=== PATIENT | male | born 1955 | race Caucasian/White ===

== ENCOUNTER 2016-11-06 01:40 | Inpatient (IN) | payer BC ==
[2016-11-06] VITALS (22 sets, daily range): BP systolic 132–167; BP diastolic 65–82
[~2016-11-06] VITALS: Ht 195.6 cm; Wt 89.0 kg
[~2016-11-06 01:40] MED LIST: ADALAT CC 60 MG60 MG PO; ALDOMET250 MG PO; APRESOLINE25 MG PO; ASPIRIN81 M1 PO; AVAPRO150 MG PO; AXID150 MG PO; BENICAR20 MG PO; CARDURA4 MG PO; CLARITIN10 M3 PO; COUMADIN2 MG PO; COUMADIN6 MG PO; COUMADIN7.5 MG PO; DILTIAZEM 24HR240 MG PO; Epogen,Procrit SQ; Halfprin PO; IRBESARTAN150 MG PO; IRON325 M1 PO; IRON325 MG PO; LABETALOL HCL200 MG PO; LONITEN2.5 MG PO; METHYLDOPA250 MG PO; MINOXIDIL2.5 MG PO; NASACORT10.8 ML BOTH NARES; NORMODYNE,TRAN200 MG PO; PROCRIT10000 UNI1 IV; PROCRIT20000 UNI2 SC; PROTONIX40 MG PO; Procardia XL,Adalat PO; TRICOR145 MG PO; VITAMIN D-32000 UNI1 PO; VITAMIN D2000 INTUN PO; VITAMIN D2000 UNIT PO; VITAMIN D32000 UNI1 PO; VITAMIN D32000 UNIT PO; WARFARIN SODIUM6 MG PO; ZETIA10 MG PO
[2016-11-06 01:52] LABS: CREATININE 3.8 mg/dL (0.6-1.3); POTASSIUM 4.1 mEq/L (3.7-5.4)
[2016-11-06 02:02] LABS: HEMATOCRIT 26.5 % (38.0-50.0); MCH 31.8 PG (29.0-34.0); MCHC 35.1 G/DL (30.0-36.0); MCV 90.8 FL (86-99); MEAN PLAT.VOLUME 10.7 uM^3 (9.0-12.4); PLATELET COUNT 167 K/uL (156-360); RBC DIS.WIDTH-CV 12.1 % (11.8-14.6); RBC DIS.WIDTH-SD 38.8 % (39-53); RED BLOOD COUNT 2.92 M/uL (4.00-5.50); WHITE BLOOD COUNT 16.2 K/uL (4.1-10.2)
[2016-11-06 02:08] LABS: CARBON DIOXIDE (BICARBONATE) 18.4 MEQ/L (20-31)
[2016-11-06 02:13] LABS: INTER. NORMALIZED RATIO 3.4; PROTHROMBIN TIME 36.1 (9.2-11.2)
[2016-11-06 02:14] LABS: CHLORIDE 94 mEq/L (99-109); POTASSIUM 4.2 mEq/L (3.7-5.4); SODIUM 124 mEq/L (136-147)
[2016-11-06 02:16] LABS: GLUCOSE 132 mg/dL (70-99)
[2016-11-06 02:21] LABS: UREA NITROGEN (BUN) 67 mg/dL (9-23)
[2016-11-06 02:24] LABS: TROP-I INTERPRETATION NEGATIVE; TROPONIN-I 0.22 ng/mL (0.0-0.30)
[2016-11-06 02:34] LABS: GFR ESTIMATE (CALCULATED) 17 mL/min/
[2016-11-06 05:22] LABS: BASE EXCESS -7.1 mEq/L (-3 to +3); BICARBONATE 16.7 mEq/L (22-26); COMMENTS - BLOOD GASES A+C+; DEVICE MASK VENT; METHEMOGLOBIN 1.7 % (0-1.5); PCO2 27 mm Hg (35-45); PO2 57 mm Hg (80-100); SITE RR
[2016-11-06 05:23] LABS: FI02 100 %; PEEP 5 CM/H20; PRES. SUPPORT 12 CM/H2O; TOTAL RESP RATE 41 resp/min
[2016-11-06] MEDS ORDERED: AMIODARONE HCL200 MG PO (05:35)
[2016-11-06] MEDS ORDERED: VITAMIN D-32000 UNI2 PO (05:36)
[2016-11-06] MEDS ORDERED: ECONAZOLE NITRA15 GM TP (05:37)
[2016-11-06] MEDS ORDERED: LABETALOL HCL200 MG PO (05:42)
[2016-11-06] MEDS ORDERED: LABETALOL HCL300 MG PO (05:44)
[2016-11-06] MEDS ORDERED: PROCARDIA XL30 MG PO (05:46)
[2016-11-06] MEDS ORDERED: PROCARDIA XL60 MG PO (05:47)
[2016-11-06 07:13] LABS: METH RESISTANT S AUREUS PCR NEGATIVE (NEGATIVE)
[2016-11-06 07:18] LABS: PROBE CHECK PASS; SPECIMEN PROCESSING CONTROL PASS
[2016-11-06 07:19] LABS: ADD MIUA? YES; BILIRUBIN NEGATIVE; BLOOD NEGATIVE; COLOR YELLOW ((YELLOW)); GLUCOSE (STRIP) NEGATIVE; KETONES NEGATIVE; LEUKOCYTES NEGATIVE; NITRITE NEGATIVE; PROTEIN (STRIP) NEGATIVE; SPECIFIC GRAVITY 1.014 (1.000-1.030); UROBILINOGEN 0.2 MG/DL (0.2-1.0)
[2016-11-06 07:22] LABS: CASTS NONE SEEN /LPF; CRYSTALS NONE SEEN; EPITHELIAL CELLS RARE; MUCUS NONE SEEN; PATHOLOGICAL CAST NONE SEEN; SMALL ROUND CELL NONE SEEN; UCUL ADDED? NO; WHITE BLOOD CELLS 0-5 /HPF (0-5); YEAST-LIKE CELL NONE SEEN
[2016-11-06 07:44] LABS: BACTERIA RARE; RED BLOOD CELLS 15-20 /HPF (0-5)
[2016-11-06] MEDS ORDERED: LASIX40 MG PO (15:12)
[2016-11-06] MEDS ORDERED: KETOCONAZOLE60 GM TP (15:13)
[2016-11-06 16:41] LABS: ANION GAP 14 MEQ/L (2-14); CHLORIDE 94 MEQ/L (99-109); GFR ESTIMATE (CALCULATED) 21 mL/min/; GLUCOSE 119 mg/dL (70-99); MAGNESIUM 1.1 mg/dl (1.3-2.7); POTASSIUM 3.8 MEQ/L (3.7-5.4); SAMPLE HEMOLYSIS CHECK 0; SAMPLE ICTERIC CHECK 0; SAMPLE LIPEMIA CHECK 0; SODIUM 127 MEQ/L (136-147); UREA NITROGEN (BUN) 67 mg/dL (9-23)
[2016-11-07] VITALS (29 sets, daily range): BP systolic 85–149; BP diastolic 49–91
[2016-11-07 00:56] LABS: CHLORIDE 96 mEq/L (99-109); POTASSIUM 4.3 mEq/L (3.7-5.4); SODIUM 129 mEq/L (136-147)
[2016-11-07 00:58] LABS: GLUCOSE 129 mg/dL (70-99)
[2016-11-07 00:59] LABS: ANION GAP 13 MEQ/L (2-14)
[2016-11-07 01:02] LABS: GFR ESTIMATE (CALCULATED) 20 mL/min/
[2016-11-07 01:03] LABS: UREA NITROGEN (BUN) 69 mg/dL (9-23)
[2016-11-07 06:07] LABS: HEMATOCRIT 24.6 % (38.0-50.0); MCH 31.1 PG (29.0-34.0); MCHC 34.6 G/DL (30.0-36.0); MCV 90.1 FL (86-99); MEAN PLAT.VOLUME 10.9 uM^3 (9.0-12.4); PLATELET COUNT 178 K/uL (156-360); RBC DIS.WIDTH-CV 12.6 % (11.8-14.6); RBC DIS.WIDTH-SD 41.3 % (39-53); RED BLOOD COUNT 2.73 M/uL (4.00-5.50); WHITE BLOOD COUNT 12.5 K/uL (4.1-10.2)
[2016-11-07 06:33] LABS: ANION GAP 14 MEQ/L (2-14); CHLORIDE 95 MEQ/L (99-109); GFR ESTIMATE (CALCULATED) 21 mL/min/; GLUCOSE 123 mg/dL (70-99); SAMPLE HEMOLYSIS CHECK 0; SAMPLE ICTERIC CHECK 0; SAMPLE LIPEMIA CHECK 0; SODIUM 131 MEQ/L (136-147); UREA NITROGEN (BUN) 71 mg/dL (9-23)
[2016-11-07 06:40] LABS: MAGNESIUM 1.9 mg/dl (1.3-2.7)
[2016-11-07 16:32] LABS: INTER. NORMALIZED RATIO 4.8; PROTHROMBIN TIME 51.4 (9.2-11.2)
[2016-11-07 16:46] LABS: ANION GAP 13 MEQ/L (2-14); CHLORIDE 96 MEQ/L (99-109); GFR ESTIMATE (CALCULATED) 19 mL/min/; GLUCOSE 133 mg/dL (70-99); MAGNESIUM 1.8 mg/dl (1.3-2.7); POTASSIUM 3.9 MEQ/L (3.7-5.4); SAMPLE HEMOLYSIS CHECK 0; SAMPLE ICTERIC CHECK 0; SAMPLE LIPEMIA CHECK 0; SODIUM 131 MEQ/L (136-147); UREA NITROGEN (BUN) 80 mg/dL (9-23)
[2016-11-07 19:17] LABS: INFLUENZA A VIRAL ANTIGEN NEGATIVE; INFLUENZA B VIRAL ANTIGEN NEGATIVE
[2016-11-08] VITALS (27 sets, daily range): BP systolic 83–121; BP diastolic 45–66
[2016-11-08 06:05] LABS: HEMATOCRIT 20.8 % (38.0-50.0); MCH 30.9 PG (29.0-34.0); MCHC 34.6 G/DL (30.0-36.0); MCV 89.3 FL (86-99); MEAN PLAT.VOLUME 10.4 uM^3 (9.0-12.4); PLATELET COUNT 183 K/uL (156-360); RBC DIS.WIDTH-CV 12.5 % (11.8-14.6); RBC DIS.WIDTH-SD 40.8 % (39-53); RED BLOOD COUNT 2.33 M/uL (4.00-5.50); WHITE BLOOD COUNT 10.9 K/uL (4.1-10.2)
[2016-11-08 06:54] LABS: ANION GAP 17 MEQ/L (2-14); CHLORIDE 98 MEQ/L (99-109); GFR ESTIMATE (CALCULATED) 14 mL/min/; GLUCOSE 122 mg/dL (70-99); MAGNESIUM 2.2 mg/dl (1.3-2.7); POTASSIUM 4.1 MEQ/L (3.7-5.4); SAMPLE HEMOLYSIS CHECK 0; SAMPLE ICTERIC CHECK 0; SAMPLE LIPEMIA CHECK 0; SODIUM 134 MEQ/L (136-147); UREA NITROGEN (BUN) 100 mg/dL (9-23); VANCOMYCIN, TROUGH 18.2 MCG/ML (10-20)
[2016-11-08 08:54] LABS: INTERNAL CONTROL VALID? YES
[2016-11-08 15:09] LABS: C3 COMPLEMENT 108 MG/DL (58-170); C4 COMPLEMENT 14 MG/DL (10-40)
[2016-11-08 16:46] LABS: ANION GAP 19 MEQ/L (2-14); GFR ESTIMATE (CALCULATED) 13 mL/min/; GLUCOSE 131 mg/dL (70-99); SAMPLE HEMOLYSIS CHECK 0; SAMPLE ICTERIC CHECK 0; SAMPLE LIPEMIA CHECK 0
[2016-11-08 16:58] LABS: UREA NITROGEN (BUN) 112 mg/dL (9-23)
[2016-11-08 17:01] LABS: CHLORIDE 97 MEQ/L (99-109); POTASSIUM 3.9 MEQ/L (3.7-5.4); SODIUM 135 MEQ/L (136-147)
[2016-11-09] VITALS (18 sets, daily range): BP systolic 116–162; BP diastolic 63–90
[2016-11-09 07:17] LABS: EOSINOPHIL (%) 0.9 % (0-5); EOSINOPHIL COUNT 0.1 K/uL (0-0.3); HEMATOCRIT 21.9 % (38.0-50.0); IMMATURE GRANULOCYTE (%) 0.3 % (0.0-0.7); LYMPHOCYTE COUNT 0.9 K/uL (1.0-2.8); MCH 31.6 PG (29.0-34.0); MCHC 35.6 G/DL (30.0-36.0); MCV 88.7 FL (86-99); MEAN PLAT.VOLUME 10.2 uM^3 (9.0-12.4); MONOCYTE (%) 2.4 % (3-12); MONOCYTE COUNT 0.3 K/uL (0-0.8); NEUTROPHIL (%) 89.3 % (45-76); NEUTROPHIL COUNT 11.5 K/uL (1.8-6.4); PLATELET COUNT 225 K/uL (156-360); RBC DIS.WIDTH-CV 12.5 % (11.8-14.6); RED BLOOD COUNT 2.47 M/uL (4.00-5.50); WHITE BLOOD COUNT 12.9 K/uL (4.1-10.2)
[2016-11-09 08:31] LABS: ALKALINE PHOSPHATASE 44 IU/L (3-129); ANION GAP 17 MEQ/L (2-14); CHLORIDE 103 MEQ/L (99-109); GFR ESTIMATE (CALCULATED) 15 mL/min/; GLUCOSE 122 mg/dL (70-99); MAGNESIUM 2.2 mg/dl (1.3-2.7); POTASSIUM 3.6 MEQ/L (3.7-5.4); SAMPLE HEMOLYSIS CHECK 0; SAMPLE ICTERIC CHECK 0; SAMPLE LIPEMIA CHECK 0; SODIUM 137 MEQ/L (136-147); TOTAL BILIRUBIN 2.1 MG/DL (0.0-1.0); UREA NITROGEN (BUN) 115 mg/dL (9-23); URIC ACID 9.3 mg/dL (3.1-9.2)
[2016-11-10] VITALS (18 sets, daily range): BP systolic 102–169; BP diastolic 57–100
[2016-11-10 05:45] LABS: EOSINOPHIL (%) 0.3 % (0-5); HEMATOCRIT 21.1 % (38.0-50.0); IMMATURE GRANULOCYTE (%) 0.3 % (0.0-0.7); LYMPHOCYTE COUNT 0.8 K/uL (1.0-2.8); MCH 30.7 PG (29.0-34.0); MCHC 34.6 G/DL (30.0-36.0); MCV 88.7 FL (86-99); MONOCYTE (%) 3.3 % (3-12); MONOCYTE COUNT 0.4 K/uL (0-0.8); NEUTROPHIL (%) 88.9 % (45-76); NEUTROPHIL COUNT 10.5 K/uL (1.8-6.4); PLATELET COUNT 232 K/uL (156-360); RBC DIS.WIDTH-CV 12.8 % (11.8-14.6); RBC DIS.WIDTH-SD 41.3 % (39-53); RED BLOOD COUNT 2.38 M/uL (4.00-5.50); WHITE BLOOD COUNT 11.8 K/uL (4.1-10.2)
[2016-11-10 07:44] LABS: ANION GAP ND MEQ/L (2-14); GFR ESTIMATE (CALCULATED) 18 mL/min/; GLUCOSE 121 mg/dL (70-99); SAMPLE HEMOLYSIS CHECK 0; SAMPLE ICTERIC CHECK 0; SAMPLE LIPEMIA CHECK 0
[2016-11-10 07:52] LABS: POTASSIUM 3.3 MEQ/L (3.7-5.4); SODIUM 140 MEQ/L (136-147); UREA NITROGEN (BUN) 112 mg/dL (9-23)
[2016-11-10 07:54] LABS: CHLORIDE 105 MEQ/L (99-109)
[2016-11-10 19:59] LABS: BASE EXCESS -4.4 mEq/L (-3 to +3); CARBOXY HGB 1.8 % (0-5); METHEMOGLOBIN 1.9 % (0-1.5); pH 7.34 (7.35-7.45)
[2016-11-10 20:00] LABS: PCO2 39 mm Hg (35-45); PO2 37 mm Hg (80-100)
[2016-11-10 20:01] LABS: PEEP 6 CM/H20
[2016-11-10 20:02] LABS: DEVICE PB840; FI02 100 %; MODE SPON; PRES. SUPPORT 12 CM/H2O; SITE LR; TOTAL RESP RATE 40 resp/min
[2016-11-10 21:18] LABS: BASE EXCESS -3.9 mEq/L (-3 to +3); BICARBONATE 22.6 mEq/L (22-26); CARBOXY HGB 2.5 % (0-5); METHEMOGLOBIN 1.5 % (0-1.5); PCO2 48 mm Hg (35-45); PO2 50 mm Hg (80-100); pH 7.28 (7.35-7.45)
[2016-11-10 21:19] LABS: DEVICE PB840; FI02 100 %; MECHANICAL RATE 12 resp/min; MODE ACPC; PEEP 8 CM/H20; PRESSURE CONTROL VENTILATION 17 CM H20; SITE LB
[2016-11-10 21:37] LABS: HEMATOCRIT 23.9 % (38.0-50.0); MCH 31.6 PG (29.0-34.0); MCHC 35.1 G/DL (30.0-36.0); MCV 89.8 FL (86-99); MEAN PLAT.VOLUME 10.3 uM^3 (9.0-12.4); PLATELET COUNT 294 K/uL (156-360); RBC DIS.WIDTH-CV 12.7 % (11.8-14.6); RBC DIS.WIDTH-SD 41.6 % (39-53); RED BLOOD COUNT 2.66 M/uL (4.00-5.50)
[2016-11-10 21:47] LABS: ANION GAP 15 MEQ/L (2-14); CHLORIDE 105 MEQ/L (99-109); MAGNESIUM 2.1 mg/dl (1.3-2.7); POTASSIUM 3.6 MEQ/L (3.7-5.4); SAMPLE HEMOLYSIS CHECK 0; SAMPLE ICTERIC CHECK 1; SAMPLE LIPEMIA CHECK 0; SODIUM 141 MEQ/L (136-147)
[2016-11-10 21:48] LABS: PROTHROMBIN TIME 20.4 (9.2-11.2)
[2016-11-10 21:50] LABS: WHITE BLOOD COUNT 18.9 K/uL (4.1-10.2)
[2016-11-10 21:57] LABS: TROP-I INTERPRETATION NEGATIVE; TROPONIN-I 0.15 ng/mL (0.0-0.30)
[2016-11-10 22:07] LABS: GFR ESTIMATE (CALCULATED) 20 mL/min/; GLUCOSE 136 mg/dL (70-99)
[2016-11-10 22:08] LABS: UREA NITROGEN (BUN) 109 mg/dL (9-23)
[2016-11-11] VITALS (27 sets, daily range): BP systolic 0–152; BP diastolic 0–83
[2016-11-11 06:16] LABS: EOSINOPHIL (%) 0.7 % (0-5); EOSINOPHIL COUNT 0.1 K/uL (0-0.3); HEMATOCRIT 20.4 % (38.0-50.0); IMMATURE GRANULOCYTE (%) 0.6 % (0.0-0.7); IMMATURE GRANULOCYTE COUNT 0.1 K/uL; LYMPHOCYTE COUNT 0.8 K/uL (1.0-2.8); MCH 31.7 PG (29.0-34.0); MCHC 35.3 G/DL (30.0-36.0); MCV 89.9 FL (86-99); MEAN PLAT.VOLUME 10.4 uM^3 (9.0-12.4); MONOCYTE (%) 3.8 % (3-12); MONOCYTE COUNT 0.4 K/uL (0-0.8); NEUTROPHIL (%) 87.7 % (45-76); NEUTROPHIL COUNT 9.5 K/uL (1.8-6.4); PLATELET COUNT 210 K/uL (156-360); RBC DIS.WIDTH-CV 12.9 % (11.8-14.6); RBC DIS.WIDTH-SD 41.9 % (39-53); RED BLOOD COUNT 2.27 M/uL (4.00-5.50)
[2016-11-11 06:20] LABS: WHITE BLOOD COUNT 10.9 K/uL (4.1-10.2)
[2016-11-11 06:52] LABS: ANION GAP 17 MEQ/L (2-14); CHLORIDE 103 MEQ/L (99-109); GFR ESTIMATE (CALCULATED) 18 mL/min/; GLUCOSE 139 mg/dL (70-99); MAGNESIUM 2.1 mg/dl (1.3-2.7); POTASSIUM 3.6 MEQ/L (3.7-5.4); SAMPLE HEMOLYSIS CHECK 0; SAMPLE ICTERIC CHECK 1; SAMPLE LIPEMIA CHECK 0; SODIUM 142 MEQ/L (136-147)
[2016-11-11 06:57] LABS: UREA NITROGEN (BUN) 116 mg/dL (9-23)
[2016-11-11 14:00] LABS: Neutrophil Cytoplasmic Aby Negative (Negative)
[2016-11-11 14:57] LABS: BASE EXCESS -3.8 mEq/L (-3 to +3); BICARBONATE 26.4 mEq/L (22-26); CARBOXY HGB 1.8 % (0-5); COMMENTS - BLOOD GASES C+; DEVICE VENT; FI02 90 %; MECHANICAL RATE 18 resp/min; METHEMOGLOBIN 1.5 % (0-1.5); MODE A/C; PCO2 83 mm Hg (35-45); PO2 110 mm Hg (80-100); SITE RR
[2016-11-11 14:58] LABS: INSPIRATION TIME 1.53 seconds; PEEP 8 CM/H20; PRESSURE CONTROL VENTILATION 21 CM H20; TOTAL RESP RATE 31 resp/min; pH 7.11 (7.35-7.45)
[2016-11-11 15:22] LABS: POINT-OF-CARE METER ID UU14162636
[2016-11-11 17:36] LABS: POINT-OF-CARE METER ID UU13113731
[2016-11-11 17:49] LABS: BASE EXCESS -2.3 mEq/L (-3 to +3); BICARBONATE 23.7 mEq/L (22-26); CARBOXY HGB 2.5 % (0-5); METHEMOGLOBIN 1.4 % (0-1.5)
[2016-11-11 17:50] LABS: COMMENTS - BLOOD GASES A+C+; DEVICE VENT; FI02 85 %; MECHANICAL RATE 16 resp/min; MODE A/C; PCO2 46 mm Hg (35-45); PEEP 15 CM/H20; PO2 76 mm Hg (80-100); SITE RR; TIDAL VOLUME 590 ML; TOTAL RESP RATE 24 resp/min; pH 7.32 (7.35-7.45)
[2016-11-12] VITALS (23 sets, daily range): BP systolic 95–150; BP diastolic 52–71
[2016-11-12 00:32] LABS: POINT-OF-CARE METER ID UU14162636; POINT-OF-CARE USER ID LABHNS84
[2016-11-12 05:43] LABS: POINT-OF-CARE USER ID LABHNS84
[2016-11-12 06:11] LABS: EOSINOPHIL (%) 1.5 % (0-5); EOSINOPHIL COUNT 0.2 K/uL (0-0.3); HEMATOCRIT 21.8 % (38.0-50.0); IMMATURE GRANULOCYTE (%) 1.1 % (0.0-0.7); IMMATURE GRANULOCYTE COUNT 0.1 K/uL; LYMPHOCYTE COUNT 0.6 K/uL (1.0-2.8); MCHC 33.9 G/DL (30.0-36.0); MCV 91.2 FL (86-99); MEAN PLAT.VOLUME 10.5 uM^3 (9.0-12.4); MONOCYTE (%) 4.8 % (3-12); MONOCYTE COUNT 0.6 K/uL (0-0.8); NEUTROPHIL (%) 87.7 % (45-76); NEUTROPHIL COUNT 11.3 K/uL (1.8-6.4); PLATELET COUNT 271 K/uL (156-360); RBC DIS.WIDTH-CV 13.5 % (11.8-14.6); RBC DIS.WIDTH-SD 44.8 % (39-53); RED BLOOD COUNT 2.39 M/uL (4.00-5.50); WHITE BLOOD COUNT 12.8 K/uL (4.1-10.2)
[2016-11-12 06:25] LABS: INTER. NORMALIZED RATIO 2.2; PROTHROMBIN TIME 22.7 (9.2-11.2)
[2016-11-12 06:42] LABS: ANION GAP 15 MEQ/L (2-14); CHLORIDE 106 MEQ/L (99-109); GFR ESTIMATE (CALCULATED) 17 mL/min/; GLUCOSE 134 mg/dL (70-99); MAGNESIUM 2.4 mg/dl (1.3-2.7); POTASSIUM 3.7 MEQ/L (3.7-5.4); SAMPLE HEMOLYSIS CHECK 0; SAMPLE ICTERIC CHECK 1; SAMPLE LIPEMIA CHECK 0; SODIUM 144 MEQ/L (136-147)
[2016-11-12 06:43] LABS: UREA NITROGEN (BUN) 124 mg/dL (9-23)
[2016-11-12 16:59] LABS: BASE EXCESS -1.8 mEq/L (-3 to +3); CARBOXY HGB 2.2 % (0-5); COMMENTS - BLOOD GASES A+C+; DEVICE 840 PB VENT; METHEMOGLOBIN 1.5 % (0-1.5); PCO2 52 mm Hg (35-45); PO2 81 mm Hg (80-100); SITE RR; pH 7.29 (7.35-7.45)
[2016-11-12 17:00] LABS: FI02 70 %; MECHANICAL RATE 16 resp/min; MODE AC; PEEP 15 CM/H20; TIDAL VOLUME 590 ML; TOTAL RESP RATE 22 resp/min
[2016-11-12 17:09] LABS: POINT-OF-CARE METER ID UU13113748
[2016-11-12 19:42] LABS: ANION GAP 15 MEQ/L (2-14); CHLORIDE 106 MEQ/L (99-109); POTASSIUM 3.8 MEQ/L (3.7-5.4); SAMPLE HEMOLYSIS CHECK 0; SAMPLE ICTERIC CHECK 0; SAMPLE LIPEMIA CHECK 0; SODIUM 144 MEQ/L (136-147)
[2016-11-12 19:47] LABS: GFR ESTIMATE (CALCULATED) 18 mL/min/; GLUCOSE 141 mg/dL (70-99); UREA NITROGEN (BUN) 127 mg/dL (9-23)
[2016-11-12 20:08] LABS: EOSINOPHIL COUNT 0.4 K/uL (0-0.3); HEMATOCRIT 21.7 % (38.0-50.0); IMMATURE GRANULOCYTE (%) 0.9 % (0.0-0.7); IMMATURE GRANULOCYTE COUNT 0.1 K/uL; LYMPHOCYTE COUNT 0.6 K/uL (1.0-2.8); MCH 31.4 PG (29.0-34.0); MCHC 34.6 G/DL (30.0-36.0); MCV 90.8 FL (86-99); MEAN PLAT.VOLUME 10.3 uM^3 (9.0-12.4); MONOCYTE COUNT 0.5 K/uL (0-0.8); NEUTROPHIL (%) 83.8 % (45-76); NEUTROPHIL COUNT 7.6 K/uL (1.8-6.4); NRBC (%) 0.2 /100 WBC (0-0); PLATELET COUNT 249 K/uL (156-360); RBC DIS.WIDTH-CV 13.5 % (11.8-14.6); RBC DIS.WIDTH-SD 44.6 % (39-53); RED BLOOD COUNT 2.39 M/uL (4.00-5.50)
[2016-11-12 20:17] LABS: PROTHROMBIN TIME 31.7 (9.2-11.2); PTT 41.8 (25-32)
[2016-11-12 20:36] LABS: ANION GAP 14 MEQ/L (2-14); CHLORIDE 106 MEQ/L (99-109); GFR ESTIMATE (CALCULATED) 18 mL/min/; GLUCOSE 153 mg/dL (70-99); MAGNESIUM 2.3 mg/dl (1.3-2.7); POTASSIUM 3.6 MEQ/L (3.7-5.4); SAMPLE HEMOLYSIS CHECK 0; SAMPLE ICTERIC CHECK 0; SAMPLE LIPEMIA CHECK 0; SODIUM 144 MEQ/L (136-147); UREA NITROGEN (BUN) 123 mg/dL (9-23)
[2016-11-13] VITALS (24 sets, daily range): BP systolic 105–143; BP diastolic 61–73
[2016-11-13 00:54] LABS: POINT-OF-CARE METER ID UU14162636
[2016-11-13 06:03] LABS: EOSINOPHIL (%) 5.7 % (0-5); EOSINOPHIL COUNT 0.5 K/uL (0-0.3); IMMATURE GRANULOCYTE (%) 1.1 % (0.0-0.7); IMMATURE GRANULOCYTE COUNT 0.1 K/uL; LYMPHOCYTE COUNT 0.4 K/uL (1.0-2.8); MCH 31.1 PG (29.0-34.0); MCHC 34.1 G/DL (30.0-36.0); MCV 91.3 FL (86-99); MEAN PLAT.VOLUME 10.6 uM^3 (9.0-12.4); MONOCYTE (%) 4.1 % (3-12); MONOCYTE COUNT 0.4 K/uL (0-0.8); NEUTROPHIL (%) 84.3 % (45-76); NEUTROPHIL COUNT 7.3 K/uL (1.8-6.4); NRBC (%) 0.5 /100 WBC (0-0); PLATELET COUNT 268 K/uL (156-360); RBC DIS.WIDTH-CV 13.7 % (11.8-14.6); RED BLOOD COUNT 2.41 M/uL (4.00-5.50); WHITE BLOOD COUNT 8.7 K/uL (4.1-10.2)
[2016-11-13 06:31] LABS: INTER. NORMALIZED RATIO 3.5; PROTHROMBIN TIME 36.6 (9.2-11.2); PTT 43.7 (25-32)
[2016-11-13 12:23] LABS: POINT-OF-CARE METER ID UU14162636
[2016-11-13 17:58] LABS: POINT-OF-CARE METER ID UU14162636
[2016-11-13 23:50] LABS: POINT-OF-CARE METER ID UU14162636; POINT-OF-CARE USER ID LABHNS84
[2016-11-14] VITALS (24 sets, daily range): BP systolic 110–164; BP diastolic 58–85
[2016-11-14 06:21] LABS: POINT-OF-CARE USER ID LABHNS84
[2016-11-14 06:25] LABS: INTER. NORMALIZED RATIO 3.3; PROTHROMBIN TIME 35.3 (9.2-11.2); PTT 46.4 (25-32)
[2016-11-14 07:15] LABS: EOSINOPHIL (%) 5.9 % (0-5); EOSINOPHIL COUNT 0.7 K/uL (0-0.3); HEMATOCRIT 28.5 % (38.0-50.0); IMMATURE GRANULOCYTE (%) 1.3 % (0.0-0.7); IMMATURE GRANULOCYTE COUNT 0.2 K/uL; LYMPHOCYTE COUNT 0.4 K/uL (1.0-2.8); MCH 30.4 PG (29.0-34.0); MCV 92.2 FL (86-99); MEAN PLAT.VOLUME 10.6 uM^3 (9.0-12.4); MONOCYTE (%) 2.6 % (3-12); MONOCYTE COUNT 0.3 K/uL (0-0.8); NEUTROPHIL (%) 86.2 % (45-76); NEUTROPHIL COUNT 9.7 K/uL (1.8-6.4); NRBC (%) 0.5 /100 WBC (0-0); PLATELET COUNT 237 K/uL (156-360); RBC DIS.WIDTH-CV 14.9 % (11.8-14.6); RBC DIS.WIDTH-SD 50.2 % (39-53); RED BLOOD COUNT 3.09 M/uL (4.00-5.50); WHITE BLOOD COUNT 11.3 K/uL (4.1-10.2)
[2016-11-14 07:21] LABS: ANION GAP 14 MEQ/L (2-14); CHLORIDE 105 MEQ/L (99-109); GFR ESTIMATE (CALCULATED) 20 mL/min/; GLUCOSE 146 mg/dL (70-99); MAGNESIUM 2.3 mg/dl (1.3-2.7); SAMPLE HEMOLYSIS CHECK 0; SAMPLE ICTERIC CHECK 0; SAMPLE LIPEMIA CHECK 0; SODIUM 143 MEQ/L (136-147); UREA NITROGEN (BUN) 91 mg/dL (9-23)
[2016-11-14 10:29] LABS: BASE EXCESS -0.2 mEq/L (-3 to +3); BICARBONATE 24.8 mEq/L (22-26); CARBOXY HGB 1.8 % (0-5); METHEMOGLOBIN 1.9 % (0-1.5); PO2 66 mm Hg (80-100)
[2016-11-14 10:30] LABS: COMMENTS - BLOOD GASES A+C+; DEVICE 840 VENT; FI02 80 %; MECHANICAL RATE 18 resp/min; MODE PC; O2 FLOW 0 L/MIN; PCO2 41 mm Hg (35-45); SITE LR; TOTAL RESP RATE 22 resp/min; pH 7.39 (7.35-7.45)
[2016-11-14 10:31] LABS: INSPIRATION TIME 0.9 seconds; PEEP 8 CM/H20; PRESSURE CONTROL VENTILATION 18 CM H20; TIDAL VOLUME 930 ML
[2016-11-14 11:58] LABS: HBSG INDEX 0.16
[2016-11-14 11:58] LABS: ANTI-HEPATITIS B CORE (TOTAL) Nonreactive; HBCT INDEX 0.26
[2016-11-14 11:59] LABS: AHBS INDEX 1.26; HEPATITIS B SURFACE ANTIBODY Nonreactive; HPCA INDEX 0.18
[2016-11-15] VITALS (23 sets, daily range): BP systolic 94–164; BP diastolic 53–87
[2016-11-15 06:01] LABS: POINT-OF-CARE METER ID UU13113748
[2016-11-15 06:01] LABS: BASOPHIL COUNT 0.1 K/uL (0-0.1); EOSINOPHIL (%) 0.1 % (0-5); HEMATOCRIT 31.4 % (38.0-50.0); IMMATURE GRANULOCYTE (%) 1.7 % (0.0-0.7); IMMATURE GRANULOCYTE COUNT 0.2 K/uL; LYMPHOCYTE COUNT 0.5 K/uL (1.0-2.8); MCH 30.1 PG (29.0-34.0); MCHC 33.1 G/DL (30.0-36.0); MEAN PLAT.VOLUME 10.9 uM^3 (9.0-12.4); MONOCYTE (%) 2.2 % (3-12); MONOCYTE COUNT 0.3 K/uL (0-0.8); NEUTROPHIL (%) 91.8 % (45-76); NEUTROPHIL COUNT 11.7 K/uL (1.8-6.4); NRBC (%) 0.3 /100 WBC (0-0); PLATELET COUNT 237 K/uL (156-360); RBC DIS.WIDTH-CV 14.7 % (11.8-14.6); RBC DIS.WIDTH-SD 48.5 % (39-53); RED BLOOD COUNT 3.45 M/uL (4.00-5.50); WHITE BLOOD COUNT 12.8 K/uL (4.1-10.2)
[2016-11-15 06:11] LABS: INTER. NORMALIZED RATIO 3.2
[2016-11-15 06:30] LABS: ANION GAP 14 MEQ/L (2-14); CHLORIDE 101 MEQ/L (99-109); GFR ESTIMATE (CALCULATED) 25 mL/min/; MAGNESIUM 2.3 mg/dl (1.3-2.7); SAMPLE HEMOLYSIS CHECK 0; SAMPLE ICTERIC CHECK 0; SAMPLE LIPEMIA CHECK 0; SODIUM 140 MEQ/L (136-147); UREA NITROGEN (BUN) 70 mg/dL (9-23)
[2016-11-15 06:31] LABS: GLUCOSE 228 mg/dL (70-99)
[2016-11-15 10:38] LABS: POC NON-PRINT COM 1 ND
[2016-11-15 11:56] LABS: POINT-OF-CARE METER ID UU13113748
[2016-11-15 17:44] LABS: POINT-OF-CARE METER ID UU13113748
[2016-11-16] VITALS (33 sets, daily range): BP systolic 93–212; BP diastolic 62–131
[2016-11-16] LABS: POINT-OF-CARE METER ID UU13113748; POINT-OF-CARE USER ID LABHNS84
[2016-11-16 05:37] LABS: POINT-OF-CARE METER ID UU13113748; POINT-OF-CARE USER ID LABHNS84
[2016-11-16 06:06] LABS: ANION GAP 14 MEQ/L (2-14); CHLORIDE 101 MEQ/L (99-109); GFR ESTIMATE (CALCULATED) 31 mL/min/; GLUCOSE 178 mg/dL (70-99); MAGNESIUM 2.1 mg/dl (1.3-2.7); POTASSIUM 3.7 MEQ/L (3.7-5.4); SAMPLE HEMOLYSIS CHECK 0; SAMPLE ICTERIC CHECK 0; SAMPLE LIPEMIA CHECK 0; SODIUM 137 MEQ/L (136-147); TOTAL BILIRUBIN 1.7 MG/DL (0.0-1.0); UREA NITROGEN (BUN) 78 mg/dL (9-23)
[2016-11-16 06:09] LABS: ALKALINE PHOSPHATASE 84 IU/L (3-129)
[2016-11-16 06:28] LABS: BASOPHIL COUNT 0.1 K/uL (0-0.1); EOSINOPHIL (%) 0.2 % (0-5); HEMATOCRIT 29.4 % (38.0-50.0); IMMATURE GRANULOCYTE (%) 2.7 % (0.0-0.7); IMMATURE GRANULOCYTE COUNT 0.6 K/uL; LYMPHOCYTE COUNT 1.5 K/uL (1.0-2.8); MCH 30.3 PG (29.0-34.0); MCHC 33.3 G/DL (30.0-36.0); MEAN PLAT.VOLUME 11.7 uM^3 (9.0-12.4); MONOCYTE (%) 2.5 % (3-12); MONOCYTE COUNT 0.6 K/uL (0-0.8); NEUTROPHIL (%) 87.5 % (45-76); NEUTROPHIL COUNT 19.7 K/uL (1.8-6.4); PLATELET COUNT 258 K/uL (156-360); RBC DIS.WIDTH-CV 14.2 % (11.8-14.6); RBC DIS.WIDTH-SD 47.4 % (39-53); RED BLOOD COUNT 3.23 M/uL (4.00-5.50)
[2016-11-16 06:29] LABS: WHITE BLOOD COUNT 22.5 K/uL (4.1-10.2)
[2016-11-16 08:03] LABS: HEMATOLOGY COMMENT 1 SMEAR COMPATIBLE; USER ID CCL
[2016-11-16 09:46] LABS: C DIFF TOXIN NEGATIVE (NEGATIVE)
[2016-11-16 09:52] LABS: PROBE CHECK PASS; SPECIMEN PROCESSING CONTROL PASS
[2016-11-16 11:37] LABS: POINT-OF-CARE METER ID UU13113748
[2016-11-16 11:57] LABS: BASE EXCESS -0.5 mEq/L (-3 to +3); BICARBONATE 22.6 mEq/L (22-26); METHEMOGLOBIN 1.8 % (0-1.5); PO2 57 mm Hg (80-100); pH 7.47 (7.35-7.45)
[2016-11-16 11:58] LABS: COMMENTS - BLOOD GASES A+C+; DEVICE 840; FI02 40 %; MODE SPONT; PCO2 31 mm Hg (35-45); PEEP 5 CM/H20; PRES. SUPPORT 5 CM/H2O; SITE LR; TOTAL RESP RATE 19 resp/min
[2016-11-16 17:44] LABS: POINT-OF-CARE METER ID UU13113748
[2016-11-17] VITALS (31 sets, daily range): BP systolic 81–173; BP diastolic 68–112
[2016-11-17 00:02] LABS: UR CREATININE CONCENTRATION 116.8 MG/DL
[2016-11-17 05:35] LABS: HEMATOCRIT 31.8 % (38.0-50.0); MCH 29.6 PG (29.0-34.0); MCHC 32.1 G/DL (30.0-36.0); MCV 92.2 FL (86-99); MEAN PLAT.VOLUME 11.4 uM^3 (9.0-12.4); NRBC (%) 0.8 /100 WBC (0-0); PLATELET COUNT 206 K/uL (156-360); RBC DIS.WIDTH-CV 14.8 % (11.8-14.6); RBC DIS.WIDTH-SD 50.1 % (39-53); RED BLOOD COUNT 3.45 M/uL (4.00-5.50); WHITE BLOOD COUNT 21.7 K/uL (4.1-10.2)
[2016-11-17 05:56] LABS: ANION GAP 15 MEQ/L (2-14); CHLORIDE 102 MEQ/L (99-109); GFR ESTIMATE (CALCULATED) 28 mL/min/; GLUCOSE 152 mg/dL (70-99); POTASSIUM 3.4 MEQ/L (3.7-5.4); SAMPLE HEMOLYSIS CHECK 0; SAMPLE ICTERIC CHECK 0; SAMPLE LIPEMIA CHECK 0; SODIUM 140 MEQ/L (136-147); UREA NITROGEN (BUN) 87 mg/dL (9-23)
[2016-11-17 06:13] LABS: PROTHROMBIN TIME 14.4 (9.2-11.2)
[2016-11-17 06:14] LABS: INTER. NORMALIZED RATIO 1.4
[2016-11-17 06:26] LABS: POINT-OF-CARE METER ID UU13113731
[2016-11-17 06:44] LABS: BASOPHIL COUNT 0.1 K/uL (0-0.1); EOSINOPHIL (%) 2.2 % (0-5); EOSINOPHIL COUNT 0.5 K/uL (0-0.3); IMMATURE GRANULOCYTE (%) 4.7 % (0.0-0.7); LYMPHOCYTE COUNT 1.8 K/uL (1.0-2.8); MONOCYTE COUNT 1.5 K/uL (0-0.8); NEUTROPHIL (%) 77.1 % (45-76); NEUTROPHIL COUNT 16.7 K/uL (1.8-6.4)
[2016-11-17 08:09] LABS: ABS NEUTROPHIL COUNT 17.69; ANISOCYTOSIS 1+; EOSINOPHIL ABS CT 0.76; EOSINOPHILS 3.5 % (0-5.0); MICROCYTOSIS OCC; NUCLEATED RBC'S 0.5; PLAT.SUFFICIENCY ADEQUATE; SEG.NEUTROPHILS 75.5 % (46.0-76.0); USER ID STC
[2016-11-17 17:35] LABS: POINT-OF-CARE METER ID UU13113748
[2016-11-18] VITALS (26 sets, daily range): BP systolic 102–204; BP diastolic 66–115
[2016-11-18 01:05] LABS: POINT-OF-CARE METER ID UU13113731; POINT-OF-CARE USER ID LABHNS84
[2016-11-18 05:43] LABS: POINT-OF-CARE METER ID UU14174217
[2016-11-18 05:57] LABS: HEMATOCRIT 32.5 % (38.0-50.0); MCH 29.9 PG (29.0-34.0); MCV 93.4 FL (86-99); NRBC (%) 0.5 /100 WBC (0-0); RBC DIS.WIDTH-CV 14.9 % (11.8-14.6); RBC DIS.WIDTH-SD 50.3 % (39-53); RED BLOOD COUNT 3.48 M/uL (4.00-5.50); WHITE BLOOD COUNT 22.8 K/uL (4.1-10.2)
[2016-11-18 06:08] LABS: INTER. NORMALIZED RATIO 1.3; PROTHROMBIN TIME 13.5 (9.2-11.2)
[2016-11-18 06:26] LABS: ANION GAP 14 MEQ/L (2-14); CHLORIDE 102 MEQ/L (99-109); GFR ESTIMATE (CALCULATED) 34 mL/min/; GLUCOSE 134 mg/dL (70-99); MAGNESIUM 2.4 mg/dl (1.3-2.7); POTASSIUM 3.7 MEQ/L (3.7-5.4); SAMPLE HEMOLYSIS CHECK 0; SAMPLE ICTERIC CHECK 0; SAMPLE LIPEMIA CHECK 0; SODIUM 139 MEQ/L (136-147); UREA NITROGEN (BUN) 69 mg/dL (9-23)
[2016-11-18 07:36] LABS: DELETE MACHINE DIFF? YES
[2016-11-18 07:47] LABS: ANISOCYTOSIS 1+; BAND NEUTROPHILS 7.5 % (0-8.0); BASOPHILS 1.5 %; EOSINOPHIL ABS CT 1.02; EOSINOPHILS 4.5 % (0-5.0); HYPOCHROMASIA 1+; LYMPHOCYTES 3.5 % (15.0-45.0); MACROCYTES OCC; METAMYELOCYTES 2.5 %; MICROCYTOSIS OCC; MYELOCYTES 1.5 %; NUCLEATED RBC'S 0.5; SEG.NEUTROPHILS 75.5 % (46.0-76.0); SPHEROCYTES OCC; USER ID TLW
[2016-11-18 07:53] LABS: PLATELET COUNT UNABLE TO REPORT K/uL (156-360)
[2016-11-18 10:07] LABS: DIGOXIN 0.6 ng/mL (0.8-2.0)
[2016-11-18 12:06] LABS: POINT-OF-CARE METER ID UU14174217
[2016-11-18 15:04] LABS: UR CREATININE CONCENTRATION 100.5 MG/DL
[2016-11-18 17:28] LABS: POINT-OF-CARE METER ID UU14174217
[2016-11-19] VITALS (26 sets, daily range): BP systolic 106–203; BP diastolic 60–92
[2016-11-19 01:00] LABS: POINT-OF-CARE METER ID UU14174217
[2016-11-19 05:49] LABS: HEMATOCRIT 30.4 % (38.0-50.0); MCH 30.6 PG (29.0-34.0); MCHC 32.6 G/DL (30.0-36.0); MCV 93.8 FL (86-99); RBC DIS.WIDTH-SD 50.6 % (39-53); RED BLOOD COUNT 3.24 M/uL (4.00-5.50); WHITE BLOOD COUNT 25.1 K/uL (4.1-10.2)
[2016-11-19 06:05] LABS: INTER. NORMALIZED RATIO 1.3; PROTHROMBIN TIME 13.1 (9.2-11.2); PTT 51.1 (25-32)
[2016-11-19 06:08] LABS: POINT-OF-CARE METER ID UU14174217
[2016-11-19 06:13] LABS: ANION GAP 12 MEQ/L (2-14); CHLORIDE 103 MEQ/L (99-109); GFR ESTIMATE (CALCULATED) 29 mL/min/; GLUCOSE 155 mg/dL (70-99); MAGNESIUM 2.1 mg/dl (1.3-2.7); POTASSIUM 3.3 MEQ/L (3.7-5.4); SAMPLE HEMOLYSIS CHECK 0; SAMPLE ICTERIC CHECK 0; SAMPLE LIPEMIA CHECK 0; SODIUM 141 MEQ/L (136-147); UREA NITROGEN (BUN) 96 mg/dL (9-23)
[2016-11-19 07:03] LABS: LACTATE DEHYDROGENASE 311 IU/L (20-246)
[2016-11-19 09:06] LABS: ABS NEUTROPHIL COUNT 21.22; ANISOCYTOSIS 1+; BAND NEUTROPHILS 4.5 % (0-8.0); BASOPHIL COUNT 0.2 K/uL (0-0.1); BASOPHILS 0.5 %; EOSINOPHIL (%) 2.8 % (0-5); EOSINOPHIL ABS CT 1.13; EOSINOPHIL COUNT 0.7 K/uL (0-0.3); EOSINOPHILS 4.5 % (0-5.0); IMMATURE GRANULOCYTE (%) 5.1 % (0.0-0.7); IMMATURE GRANULOCYTE COUNT 1.3 K/uL; LYMPHOCYTE COUNT 2.6 K/uL (1.0-2.8); LYMPHOCYTES 5.5 % (15.0-45.0); METAMYELOCYTES 2.5 %; MONOCYTE (%) 2.5 % (3-12); MONOCYTE COUNT 0.6 K/uL (0-0.8); MYELOCYTES 0.5 %; NEUTROPHIL (%) 78.3 % (45-76); NEUTROPHIL COUNT 19.7 K/uL (1.8-6.4); PLAT.SUFFICIENCY ADEQUATE; POLYCHROMASIA 1+; SPHEROCYTES OCC; USER ID MCB
[2016-11-19 09:13] LABS: PLATELET COUNT 146 K/uL (156-360)
[2016-11-19 12:00] LABS: POINT-OF-CARE METER ID UU13113731
[2016-11-19 17:12] LABS: POINT-OF-CARE METER ID UU13113731
[2016-11-20] VITALS (24 sets, daily range): BP systolic 0–151; BP diastolic 0–69
[2016-11-20 00:14] LABS: POINT-OF-CARE METER ID UU13113731
[2016-11-20 02:48] LABS: HEMATOCRIT 29.8 % (38.0-50.0); MCH 30.9 PG (29.0-34.0); MCHC 32.6 G/DL (30.0-36.0); MCV 94.9 FL (86-99); MEAN PLAT.VOLUME 11.7 uM^3 (9.0-12.4); PLATELET COUNT 171 K/uL (156-360); RBC DIS.WIDTH-CV 15.1 % (11.8-14.6); RBC DIS.WIDTH-SD 48.5 % (39-53); RED BLOOD COUNT 3.14 M/uL (4.00-5.50); WHITE BLOOD COUNT 23.3 K/uL (4.1-10.2)
[2016-11-20 02:57] LABS: INTER. NORMALIZED RATIO 1.3; PROTHROMBIN TIME 13.3 (9.2-11.2)
[2016-11-20 03:05] LABS: CHLORIDE 107 mEq/L (99-109); POTASSIUM 3.8 mEq/L (3.7-5.4); SODIUM 144 mEq/L (136-147)
[2016-11-20 03:08] LABS: ANION GAP 15 MEQ/L (2-14)
[2016-11-20 03:11] LABS: GFR ESTIMATE (CALCULATED) 32 mL/min/
[2016-11-20 03:27] LABS: GLUCOSE 151 mg/dL (70-99)
[2016-11-20 03:36] LABS: UREA NITROGEN (BUN) 103 mg/dL (9-23)
[2016-11-20 03:51] LABS: ANISOCYTOSIS 1+; POLYCHROMASIA 1+; USER ID SLU
[2016-11-20 03:52] LABS: BASOPHIL COUNT 0.1 K/uL (0-0.1); EOSINOPHIL (%) 2.5 % (0-5); EOSINOPHIL ABS CT 1.63; EOSINOPHIL COUNT 0.6 K/uL (0-0.3); IMMATURE GRANULOCYTE (%) 3.4 % (0.0-0.7); IMMATURE GRANULOCYTE COUNT 7.9 K/uL; LYMPHOCYTE COUNT 1.2 K/uL (1.0-2.8); MONOCYTE (%) 3.1 % (3-12); MONOCYTE COUNT 0.7 K/uL (0-0.8); NEUTROPHIL (%) 85.8 % (45-76)
[2016-11-20 04:38] LABS: VANCOMYCIN, TROUGH 14.6 MCG/ML (10-20)
[2016-11-20 05:53] LABS: POINT-OF-CARE METER ID UU13113748
[2016-11-20 10:09] LABS: HIV INDEX 0.12; HIV-1/2 AB/AG COMBO Nonreactive
[2016-11-20 13:43] LABS: POINT-OF-CARE METER ID UU13113748
[2016-11-20 18:35] LABS: POINT-OF-CARE METER ID UU13113731
[2016-11-20 23:38] LABS: POINT-OF-CARE METER ID UU14162636
[2016-11-21] VITALS (25 sets, daily range): BP systolic 107–158; BP diastolic 56–84
[2016-11-21 05:46] LABS: POINT-OF-CARE METER ID UU13113748
[2016-11-21 06:12] LABS: BASOPHIL COUNT 0.1 K/uL (0-0.1); EOSINOPHIL (%) 7.1 % (0-5); EOSINOPHIL COUNT 1.1 K/uL (0-0.3); HEMATOCRIT 27.4 % (38.0-50.0); IMMATURE GRANULOCYTE (%) 3.1 % (0.0-0.7); IMMATURE GRANULOCYTE COUNT 0.5 K/uL; LYMPHOCYTE COUNT 1.4 K/uL (1.0-2.8); MCH 30.8 PG (29.0-34.0); MCHC 33.2 G/DL (30.0-36.0); MCV 92.9 FL (86-99); MEAN PLAT.VOLUME 12.1 uM^3 (9.0-12.4); MONOCYTE (%) 2.7 % (3-12); MONOCYTE COUNT 0.4 K/uL (0-0.8); NEUTROPHIL (%) 77.7 % (45-76); NEUTROPHIL COUNT 11.7 K/uL (1.8-6.4); PLATELET COUNT 197 K/uL (156-360); RBC DIS.WIDTH-CV 15.2 % (11.8-14.6); RBC DIS.WIDTH-SD 51.1 % (39-53); RED BLOOD COUNT 2.95 M/uL (4.00-5.50)
[2016-11-21 06:13] LABS: WHITE BLOOD COUNT 15.1 K/uL (4.1-10.2)
[2016-11-21 06:35] LABS: ANION GAP 12 MEQ/L (2-14); CHLORIDE 104 MEQ/L (99-109); GFR ESTIMATE (CALCULATED) 34 mL/min/; GLUCOSE 141 mg/dL (70-99); MAGNESIUM 2.1 mg/dl (1.3-2.7); POTASSIUM 3.1 MEQ/L (3.7-5.4); SAMPLE HEMOLYSIS CHECK 0; SAMPLE ICTERIC CHECK 0; SAMPLE LIPEMIA CHECK 0; SODIUM 141 MEQ/L (136-147)
[2016-11-21 06:40] LABS: UREA NITROGEN (BUN) 115 mg/dL (9-23)
[2016-11-21 07:25] LABS: HEMATOLOGY COMMENT 1 SMEAR COMPATIBLE
[2016-11-21 12:31] LABS: POINT-OF-CARE METER ID UU13113731
[2016-11-21 18:18] LABS: POINT-OF-CARE METER ID UU14162636
[2016-11-22] VITALS (25 sets, daily range): BP systolic 134–179; BP diastolic 54–99
[2016-11-22 00:28] LABS: POINT-OF-CARE METER ID UU13113731
[2016-11-22 05:40] LABS: HEMATOCRIT 28.6 % (38.0-50.0); MCH 29.7 PG (29.0-34.0); MCHC 31.8 G/DL (30.0-36.0); MCV 93.5 FL (86-99); MEAN PLAT.VOLUME 11.6 uM^3 (9.0-12.4); PLATELET COUNT 215 K/uL (156-360); RBC DIS.WIDTH-CV 15.3 % (11.8-14.6); RBC DIS.WIDTH-SD 51.2 % (39-53); RED BLOOD COUNT 3.06 M/uL (4.00-5.50)
[2016-11-22 05:43] LABS: POINT-OF-CARE METER ID UU13113731
[2016-11-22 06:01] LABS: ANION GAP 11 MEQ/L (2-14); CHLORIDE 109 MEQ/L (99-109); GFR ESTIMATE (CALCULATED) 41 mL/min/; GLUCOSE 98 mg/dL (70-99); MAGNESIUM 1.8 mg/dl (1.3-2.7); POTASSIUM 3.6 MEQ/L (3.7-5.4); SAMPLE HEMOLYSIS CHECK 0; SAMPLE ICTERIC CHECK 0; SAMPLE LIPEMIA CHECK 0; SODIUM 144 MEQ/L (136-147); UREA NITROGEN (BUN) 96 mg/dL (9-23)
[2016-11-22 06:28] LABS: EOSINOPHIL (%) 4.6 % (0-5); EOSINOPHIL COUNT 0.6 K/uL (0-0.3); IMMATURE GRANULOCYTE (%) 2.5 % (0.0-0.7); IMMATURE GRANULOCYTE COUNT 0.3 K/uL; LYMPHOCYTE COUNT 1.5 K/uL (1.0-2.8); MONOCYTE (%) 4.1 % (3-12); MONOCYTE COUNT 0.5 K/uL (0-0.8); NEUTROPHIL (%) 75.9 % (45-76); NEUTROPHIL COUNT 9.1 K/uL (1.8-6.4)
[2016-11-22 07:22] LABS: HEMATOLOGY COMMENT 1 SMEAR COMPATIBLE; PLAT.SUFFICIENCY ADEQUATE; USER ID TLW
[2016-11-22 23:30] LABS: BILIRUBIN NEGATIVE; BLOOD NEGATIVE; COLOR YELLOW ((YELLOW)); GLUCOSE (STRIP) NEGATIVE; KETONES NEGATIVE; LEUKOCYTES NEGATIVE; NITRITE NEGATIVE; PH, URINE 5.5 (5-8); PROTEIN (STRIP) TRACE; SPECIFIC GRAVITY 1.023 (1.000-1.030); UROBILINOGEN 0.2 MG/DL (0.2-1.0)
[2016-11-22 23:34] LABS: ADD MIUA? NO; UCUL ADDED? NO
[2016-11-23] VITALS (16 sets, daily range): BP systolic 142–189; BP diastolic 67–104
[2016-11-23 00:02] LABS: POINT-OF-CARE METER ID UU14174217
[2016-11-23 06:00] LABS: HEMATOCRIT 30.6 % (38.0-50.0); MCH 30.1 PG (29.0-34.0); MCHC 31.7 G/DL (30.0-36.0); MEAN PLAT.VOLUME 11.9 uM^3 (9.0-12.4); PLATELET COUNT 224 K/uL (156-360); RBC DIS.WIDTH-CV 15.3 % (11.8-14.6); RED BLOOD COUNT 3.22 M/uL (4.00-5.50)
[2016-11-23 06:42] LABS: ANION GAP 11 MEQ/L (2-14); CHLORIDE 112 MEQ/L (99-109); GFR ESTIMATE (CALCULATED) 47 mL/min/; GLUCOSE 104 mg/dL (70-99); MAGNESIUM 1.8 mg/dl (1.3-2.7); POTASSIUM 3.6 MEQ/L (3.7-5.4); SAMPLE HEMOLYSIS CHECK 0; SAMPLE ICTERIC CHECK 0; SAMPLE LIPEMIA CHECK 0; SODIUM 148 MEQ/L (136-147); UREA NITROGEN (BUN) 78 mg/dL (9-23)
[2016-11-23 07:37] LABS: BASOPHIL COUNT 0.1 K/uL (0-0.1); EOSINOPHIL (%) 1.5 % (0-5); EOSINOPHIL COUNT 0.2 K/uL (0-0.3); HEMATOLOGY COMMENT 1 REV; IMMATURE GRANULOCYTE (%) 2.1 % (0.0-0.7); IMMATURE GRANULOCYTE COUNT 0.3 K/uL; LYMPHOCYTE COUNT 1.5 K/uL (1.0-2.8); MONOCYTE (%) 6.1 % (3-12); MONOCYTE COUNT 0.9 K/uL (0-0.8); NEUTROPHIL (%) 80.2 % (45-76); USER ID NJR
[2016-11-23 09:02] LABS: POINT-OF-CARE METER ID UU13113731
[2016-11-23 11:55] LABS: POINT-OF-CARE METER ID UU14174217
[2016-11-23 17:07] LABS: POINT-OF-CARE METER ID UU13113731
[2016-11-23 21:09] LABS: POINT-OF-CARE METER ID UU13113803
[2016-11-24] VITALS (11 sets, daily range): BP systolic 130–174; BP diastolic 82–108
[2016-11-24 04:02] LABS: HEMATOCRIT 30.1 % (38.0-50.0); MCH 30.4 PG (29.0-34.0); MCHC 31.2 G/DL (30.0-36.0); MCV 97.4 FL (86-99); MEAN PLAT.VOLUME 11.6 uM^3 (9.0-12.4); PLATELET COUNT 220 K/uL (156-360); RBC DIS.WIDTH-CV 15.5 % (11.8-14.6); RBC DIS.WIDTH-SD 51.1 % (39-53); RED BLOOD COUNT 3.09 M/uL (4.00-5.50); WHITE BLOOD COUNT 17.6 K/uL (4.1-10.2)
[2016-11-24 04:04] LABS: BASOPHIL COUNT 0.1 K/uL (0-0.1); EOSINOPHIL (%) 0.7 % (0-5); EOSINOPHIL COUNT 0.1 K/uL (0-0.3); IMMATURE GRANULOCYTE (%) 1.1 % (0.0-0.7); LYMPHOCYTE COUNT 1.8 K/uL (1.0-2.8); MONOCYTE (%) 7.7 % (3-12); MONOCYTE COUNT 1.4 K/uL (0-0.8); NEUTROPHIL (%) 79.6 % (45-76)
[2016-11-24 04:16] LABS: CHLORIDE 117 mEq/L (99-109); POTASSIUM 3.5 mEq/L (3.7-5.4); SODIUM 151 mEq/L (136-147)
[2016-11-24 04:18] LABS: GLUCOSE 116 mg/dL (70-99)
[2016-11-24 04:20] LABS: ANION GAP 11 MEQ/L (2-14)
[2016-11-24 04:22] LABS: GFR ESTIMATE (CALCULATED) 41 mL/min/; MAGNESIUM 1.6 mg/dL (1.3-2.7)
[2016-11-24 04:23] LABS: UREA NITROGEN (BUN) 73 mg/dL (9-23)
[2016-11-24 08:15] LABS: POINT-OF-CARE METER ID UU13113731; POINT-OF-CARE USER ID 606021424
[2016-11-24 12:08] LABS: POINT-OF-CARE METER ID UU13113748
[2016-11-24 18:27] LABS: POINT-OF-CARE METER ID UU13113748; POINT-OF-CARE USER ID 606021424
[2016-11-24 22:14] LABS: POINT-OF-CARE METER ID UU13113731
[2016-11-25] VITALS (9 sets, daily range): BP systolic 132–170; BP diastolic 80–87
[2016-11-25 06:32] LABS: HEMATOCRIT 27.5 % (38.0-50.0); MCH 30.4 PG (29.0-34.0); MCHC 30.9 G/DL (30.0-36.0); MCV 98.2 FL (86-99); MEAN PLAT.VOLUME 11.4 uM^3 (9.0-12.4); PLATELET COUNT 213 K/uL (156-360); RBC DIS.WIDTH-CV 16.1 % (11.8-14.6); RBC DIS.WIDTH-SD 57.1 % (39-53); WHITE BLOOD COUNT 15.9 K/uL (4.1-10.2)
[2016-11-25 06:37] LABS: EOSINOPHIL (%) 1.1 % (0-5); EOSINOPHIL COUNT 0.2 K/uL (0-0.3); IMMATURE GRANULOCYTE (%) 0.7 % (0.0-0.7); IMMATURE GRANULOCYTE COUNT 0.1 K/uL; LYMPHOCYTE COUNT 1.8 K/uL (1.0-2.8); MONOCYTE (%) 7.6 % (3-12); MONOCYTE COUNT 1.2 K/uL (0-0.8); NEUTROPHIL (%) 79.3 % (45-76); NEUTROPHIL COUNT 12.7 K/uL (1.8-6.4)
[2016-11-25 06:48] LABS: ANION GAP 12 MEQ/L (2-14); CHLORIDE 120 MEQ/L (99-109); GFR ESTIMATE (CALCULATED) 43 mL/min/; GLUCOSE 116 mg/dL (70-99); MAGNESIUM 1.8 mg/dl (1.3-2.7); POTASSIUM 3.5 MEQ/L (3.7-5.4); SAMPLE HEMOLYSIS CHECK 0; SAMPLE ICTERIC CHECK 0; SAMPLE LIPEMIA CHECK 0; SODIUM 155 MEQ/L (136-147); UREA NITROGEN (BUN) 68 mg/dL (9-23)
[2016-11-25 12:32] LABS: POINT-OF-CARE METER ID UU13113748
[2016-11-25 14:32] LABS: ANION GAP 10 MEQ/L (2-14); CHLORIDE 120 MEQ/L (99-109); GFR ESTIMATE (CALCULATED) 43 mL/min/; GLUCOSE 129 mg/dL (70-99); POTASSIUM 3.8 MEQ/L (3.7-5.4); SAMPLE HEMOLYSIS CHECK 0; SAMPLE ICTERIC CHECK 0; SAMPLE LIPEMIA CHECK 0; SODIUM 152 MEQ/L (136-147); UREA NITROGEN (BUN) 68 mg/dL (9-23)
[2016-11-25 17:39] LABS: POINT-OF-CARE METER ID UU13113748
[2016-11-25 21:00] LABS: ANION GAP 11 MEQ/L (2-14); CHLORIDE 118 MEQ/L (99-109); GFR ESTIMATE (CALCULATED) 43 mL/min/; GLUCOSE 127 mg/dL (70-99); POTASSIUM 3.6 MEQ/L (3.7-5.4); SAMPLE HEMOLYSIS CHECK 0; SAMPLE ICTERIC CHECK 0; SAMPLE LIPEMIA CHECK 0; SODIUM 151 MEQ/L (136-147); UREA NITROGEN (BUN) 66 mg/dL (9-23)
[2016-11-25 23:17] LABS: POINT-OF-CARE METER ID UU13113748
[2016-11-26] VITALS (11 sets, daily range): BP systolic 121–155; BP diastolic 68–88
[2016-11-26 05:26] LABS: EOSINOPHIL (%) 2.1 % (0-5); EOSINOPHIL COUNT 0.3 K/uL (0-0.3); IMMATURE GRANULOCYTE (%) 0.7 % (0.0-0.7); IMMATURE GRANULOCYTE COUNT 0.1 K/uL; LYMPHOCYTE COUNT 2.1 K/uL (1.0-2.8); MCH 30.7 PG (29.0-34.0); MCHC 31.1 G/DL (30.0-36.0); MCV 98.5 FL (86-99); MEAN PLAT.VOLUME 11.5 uM^3 (9.0-12.4); MONOCYTE (%) 5.3 % (3-12); MONOCYTE COUNT 0.7 K/uL (0-0.8); NEUTROPHIL (%) 76.2 % (45-76); NEUTROPHIL COUNT 10.4 K/uL (1.8-6.4); PLATELET COUNT 195 K/uL (156-360); RBC DIS.WIDTH-CV 15.9 % (11.8-14.6); RBC DIS.WIDTH-SD 56.8 % (39-53); RED BLOOD COUNT 2.74 M/uL (4.00-5.50); WHITE BLOOD COUNT 13.6 K/uL (4.1-10.2)
[2016-11-26 05:53] LABS: ANION GAP 11 MEQ/L (2-14); CHLORIDE 119 MEQ/L (99-109); GFR ESTIMATE (CALCULATED) 50 mL/min/; MAGNESIUM 1.7 mg/dl (1.3-2.7); POTASSIUM 3.7 MEQ/L (3.7-5.4); SAMPLE HEMOLYSIS CHECK 0; SAMPLE ICTERIC CHECK 0; SAMPLE LIPEMIA CHECK 0; SODIUM 153 MEQ/L (136-147); UREA NITROGEN (BUN) 60 mg/dL (9-23)
[2016-11-26 06:16] LABS: GLUCOSE 89 mg/dL (70-99)
[2016-11-26 09:03] LABS: POINT-OF-CARE METER ID UU13113748
[2016-11-26 12:14] LABS: POINT-OF-CARE METER ID UU13113748
[2016-11-26 12:43] LABS: INTER. NORMALIZED RATIO 1.3; PROTHROMBIN TIME 13.8 (9.2-11.2); PTT 53.2 (25-32)
[2016-11-26 17:47] LABS: POINT-OF-CARE METER ID UU13113748
[2016-11-26 20:51] LABS: CHLORIDE 117 mEq/L (99-109); POTASSIUM 3.5 mEq/L (3.7-5.4); SODIUM 147 mEq/L (136-147)
[2016-11-26 20:53] LABS: GLUCOSE 132 mg/dL (70-99)
[2016-11-26 20:54] LABS: ANION GAP 6 MEQ/L (2-14)
[2016-11-26 20:57] LABS: GFR ESTIMATE (CALCULATED) 47 mL/min/; UREA NITROGEN (BUN) 58 mg/dL (9-23)
[2016-11-26 23:35] LABS: POINT-OF-CARE METER ID UU13113803
[2016-11-27] VITALS (7 sets, daily range): BP systolic 144–163; BP diastolic 70–97
[2016-11-27 09:47] LABS: HEMATOCRIT 24.7 % (38.0-50.0); MCH 30.5 PG (29.0-34.0); MCHC 31.6 G/DL (30.0-36.0); MCV 96.5 FL (86-99); MEAN PLAT.VOLUME 10.7 uM^3 (9.0-12.4); NRBC (%) 0.2 /100 WBC (0-0); PLATELET COUNT 166 K/uL (156-360); RBC DIS.WIDTH-CV 15.4 % (11.8-14.6); RBC DIS.WIDTH-SD 53.8 % (39-53); RED BLOOD COUNT 2.56 M/uL (4.00-5.50); WHITE BLOOD COUNT 11.4 K/uL (4.1-10.2)
[2016-11-27 09:54] LABS: EOSINOPHIL (%) 4.3 % (0-5); EOSINOPHIL COUNT 0.5 K/uL (0-0.3); IMMATURE GRANULOCYTE (%) 0.6 % (0.0-0.7); IMMATURE GRANULOCYTE COUNT 0.1 K/uL; LYMPHOCYTE COUNT 1.6 K/uL (1.0-2.8); MONOCYTE (%) 7.2 % (3-12); MONOCYTE COUNT 0.8 K/uL (0-0.8); NEUTROPHIL (%) 73.5 % (45-76); NEUTROPHIL COUNT 8.3 K/uL (1.8-6.4)
[2016-11-27 10:09] LABS: INTER. NORMALIZED RATIO 1.3; PROTHROMBIN TIME 13.3 (9.2-11.2)
[2016-11-27 10:11] LABS: ANION GAP 8 MEQ/L (2-14); CHLORIDE 114 MEQ/L (99-109); GFR ESTIMATE (CALCULATED) 54 mL/min/; POTASSIUM 3.6 MEQ/L (3.7-5.4); SAMPLE HEMOLYSIS CHECK 0; SAMPLE ICTERIC CHECK 0; SAMPLE LIPEMIA CHECK 0; SODIUM 143 MEQ/L (136-147); UREA NITROGEN (BUN) 49 mg/dL (9-23)
[2016-11-27 10:16] LABS: GLUCOSE 91 mg/dL (70-99); MAGNESIUM 1.4 mg/dl (1.3-2.7)
[2016-11-28] VITALS (7 sets, daily range): BP systolic 98–160; BP diastolic 56–91
[2016-11-28 07:40] LABS: EOSINOPHIL (%) 5.9 % (0-5); EOSINOPHIL COUNT 0.6 K/uL (0-0.3); HEMATOCRIT 24.6 % (38.0-50.0); IMMATURE GRANULOCYTE (%) 0.7 % (0.0-0.7); IMMATURE GRANULOCYTE COUNT 0.1 K/uL; LYMPHOCYTE COUNT 1.9 K/uL (1.0-2.8); MCH 30.1 PG (29.0-34.0); MCHC 31.3 G/DL (30.0-36.0); MCV 96.1 FL (86-99); MEAN PLAT.VOLUME 11.1 uM^3 (9.0-12.4); MONOCYTE (%) 4.5 % (3-12); MONOCYTE COUNT 0.5 K/uL (0-0.8); NEUTROPHIL (%) 71.4 % (45-76); NEUTROPHIL COUNT 7.7 K/uL (1.8-6.4); PLATELET COUNT 171 K/uL (156-360); RBC DIS.WIDTH-SD 52.3 % (39-53); RED BLOOD COUNT 2.56 M/uL (4.00-5.50); WHITE BLOOD COUNT 10.8 K/uL (4.1-10.2)
[2016-11-28 07:50] LABS: INTER. NORMALIZED RATIO 1.6; PROTHROMBIN TIME 16.3 (9.2-11.2); PTT 59.7 (25-32)
[2016-11-28 08:01] LABS: ANION GAP 9 MEQ/L (2-14); CHLORIDE 114 MEQ/L (99-109); GFR ESTIMATE (CALCULATED) > 59 mL/min/; GLUCOSE 85 mg/dL (70-99); MAGNESIUM 1.5 mg/dl (1.3-2.7); POTASSIUM 3.6 MEQ/L (3.7-5.4); SAMPLE HEMOLYSIS CHECK 0; SAMPLE ICTERIC CHECK 0; SAMPLE LIPEMIA CHECK 0; SODIUM 143 MEQ/L (136-147); UREA NITROGEN (BUN) 45 mg/dL (9-23)
[2016-11-29] VITALS (7 sets, daily range): BP systolic 133–155; BP diastolic 69–96
[2016-11-29 06:40] LABS: INTER. NORMALIZED RATIO 1.7; PROTHROMBIN TIME 17.8 (9.2-11.2); PTT 77.4 (25-32)
[2016-11-29 06:52] LABS: EOSINOPHIL (%) 3.8 % (0-5); EOSINOPHIL COUNT 0.5 K/uL (0-0.3); HEMATOCRIT 25.2 % (38.0-50.0); IMMATURE GRANULOCYTE (%) 0.7 % (0.0-0.7); IMMATURE GRANULOCYTE COUNT 0.1 K/uL; LYMPHOCYTE COUNT 1.5 K/uL (1.0-2.8); MCH 30.3 PG (29.0-34.0); MCHC 31.7 G/DL (30.0-36.0); MCV 95.5 FL (86-99); MONOCYTE (%) 6.2 % (3-12); MONOCYTE COUNT 0.9 K/uL (0-0.8); NEUTROPHIL (%) 78.8 % (45-76); NEUTROPHIL COUNT 11.3 K/uL (1.8-6.4); PLATELET COUNT 191 K/uL (156-360); RBC DIS.WIDTH-CV 14.9 % (11.8-14.6); RBC DIS.WIDTH-SD 51.3 % (39-53); RED BLOOD COUNT 2.64 M/uL (4.00-5.50)
[2016-11-29 06:53] LABS: WHITE BLOOD COUNT 14.3 K/uL (4.1-10.2)
[2016-11-29 07:05] LABS: ANION GAP 7 MEQ/L (2-14); CHLORIDE 112 MEQ/L (99-109); GFR ESTIMATE (CALCULATED) 50 mL/min/; GLUCOSE 103 mg/dL (70-99); MAGNESIUM 1.4 mg/dl (1.3-2.7); SAMPLE HEMOLYSIS CHECK 0; SAMPLE ICTERIC CHECK 0; SAMPLE LIPEMIA CHECK 0; SODIUM 138 MEQ/L (136-147); UREA NITROGEN (BUN) 41 mg/dL (9-23)
[2016-11-29 07:06] LABS: POTASSIUM 4.7 MEQ/L (3.7-5.4)
[2016-11-29 13:39] LABS: GLOBULINS 4.1 G/DL (2.3-3.5)
[2016-11-29 13:42] LABS: INTER. NORMALIZED RATIO 1.7; PROTHROMBIN TIME 18.1 (9.2-11.2); PTT 59.6 (25-32)
[2016-11-29 13:59] LABS: FERRITIN > 1500 NG/ML (22-322)
[2016-11-29 15:01] LABS: ADD MIUA? YES; BILIRUBIN NEGATIVE; BLOOD NEGATIVE; COLOR AMBER ((YELLOW)); GLUCOSE (STRIP) NEGATIVE; KETONES NEGATIVE; LEUKOCYTES NEGATIVE; NITRITE NEGATIVE; PROTEIN (STRIP) NEGATIVE; SPECIFIC GRAVITY 1.018 (1.000-1.030)
[2016-11-29 15:34] LABS: BACTERIA RARE /HPF; EPITHELIAL CELLS NONE SEEN /HPF; HYALINE CASTS 0-5 /LPF; MUCUS TRACE /LPF; WHITE BLOOD CELLS 0-5 /HPF (0-5)
[2016-11-29 15:40] LABS: CASTS PRESENT /LPF; CRYSTALS PRESENT
[2016-11-29 19:37] LABS: INTER. NORMALIZED RATIO 1.9; PROTHROMBIN TIME 19.3 (9.2-11.2); PTT 72.8 (25-32)
[2016-11-30 02:02] LABS: INTER. NORMALIZED RATIO 1.9; PROTHROMBIN TIME 19.2 (9.2-11.2); PTT 71.7 (25-32)
[2016-11-30 03:52] VITALS: BP 149/79
[2016-11-30 08:18] VITALS: BP 154/83
[2016-11-30 08:57] LABS: EOSINOPHIL (%) 3.8 % (0-5); EOSINOPHIL COUNT 0.5 K/uL (0-0.3); HEMATOCRIT 23.4 % (38.0-50.0); IMMATURE GRANULOCYTE (%) 0.6 % (0.0-0.7); IMMATURE GRANULOCYTE COUNT 0.1 K/uL; LYMPHOCYTE COUNT 1.5 K/uL (1.0-2.8); MCH 30.8 PG (29.0-34.0); MCHC 32.5 G/DL (30.0-36.0); MCV 94.7 FL (86-99); MEAN PLAT.VOLUME 10.9 uM^3 (9.0-12.4); MONOCYTE (%) 6.7 % (3-12); MONOCYTE COUNT 0.9 K/uL (0-0.8); NEUTROPHIL (%) 78.3 % (45-76); PLATELET COUNT 185 K/uL (156-360); RBC DIS.WIDTH-SD 51.2 % (39-53); RED BLOOD COUNT 2.47 M/uL (4.00-5.50); WHITE BLOOD COUNT 14.1 K/uL (4.1-10.2)
[2016-11-30 09:02] LABS: PROTHROMBIN TIME 20.7 (9.2-11.2); PTT 54.7 (25-32)
[2016-11-30 09:41] LABS: ANION GAP 8 MEQ/L (2-14); CHLORIDE 111 MEQ/L (99-109); GFR ESTIMATE (CALCULATED) 54 mL/min/; GLUCOSE 98 mg/dL (70-99); MAGNESIUM 1.4 mg/dl (1.3-2.7); POTASSIUM 4.4 MEQ/L (3.7-5.4); SAMPLE HEMOLYSIS CHECK 0; SAMPLE ICTERIC CHECK 0; SAMPLE LIPEMIA CHECK 0; SODIUM 138 MEQ/L (136-147); UREA NITROGEN (BUN) 42 mg/dL (9-23)
[2016-11-30 12:15] VITALS: BP 156/82
[2016-11-30 12:40] LABS: IFE GEL NO. 16-4
[2016-11-30 14:11] LABS: BICARBONATE 18.9 mEq/L (22-26); CARBOXY HGB 2.5 % (0-5); METHEMOGLOBIN 1.6 % (0-1.5); PO2 58 mm Hg (80-100); pH 7.47 (7.35-7.45)
[2016-11-30 14:12] LABS: COMMENTS - BLOOD GASES NEG A+C+; DEVICE VENTURI MASK; FI02 50 %; O2 FLOW 12 L/MIN; PCO2 26 mm Hg (35-45); SITE RR; TOTAL RESP RATE 30 resp/min
[2016-11-30 15:36] VITALS: BP 125/60
[2016-11-30 17:44] LABS: INTER. NORMALIZED RATIO 2.2; PROTHROMBIN TIME 22.7 (9.2-11.2); PTT 58.7 (25-32)
[2016-11-30 19:08] VITALS: BP 150/83
[2016-11-30 22:48] LABS: INTER. NORMALIZED RATIO 2.1; PROTHROMBIN TIME 22.2 (9.2-11.2)
[2016-11-30 23:54] VITALS: BP 152/67
[2016-12-01] VITALS (11 sets, daily range): BP systolic 12–140; BP diastolic 50–77
[2016-12-01 02:53] LABS: HEMATOCRIT 27.3 % (38.0-50.0); MCH 29.7 PG (29.0-34.0); MCHC 31.1 G/DL (30.0-36.0); MCV 95.5 FL (86-99); MEAN PLAT.VOLUME 10.6 uM^3 (9.0-12.4); PLATELET COUNT 187 K/uL (156-360); RBC DIS.WIDTH-CV 14.6 % (11.8-14.6); RBC DIS.WIDTH-SD 47.2 % (39-53); RED BLOOD COUNT 2.86 M/uL (4.00-5.50); WHITE BLOOD COUNT 16.5 K/uL (4.1-10.2)
[2016-12-01 06:38] LABS: HEMATOCRIT 22.3 % (38.0-50.0); MCHC 31.8 G/DL (30.0-36.0); MCV 94.1 FL (86-99); PLATELET COUNT 175 K/uL (156-360); RBC DIS.WIDTH-SD 50.8 % (39-53); RED BLOOD COUNT 2.37 M/uL (4.00-5.50); WHITE BLOOD COUNT 12.8 K/uL (4.1-10.2)
[2016-12-01 06:46] LABS: INTER. NORMALIZED RATIO 2.5; PROTHROMBIN TIME 26.7 (9.2-11.2); PTT 59.7 (25-32)
[2016-12-01 06:52] LABS: EOSINOPHIL (%) 1.6 % (0-5); EOSINOPHIL COUNT 0.2 K/uL (0-0.3); IMMATURE GRANULOCYTE (%) 0.5 % (0.0-0.7); IMMATURE GRANULOCYTE COUNT 0.1 K/uL; LYMPHOCYTE COUNT 0.3 K/uL (1.0-2.8); MONOCYTE (%) 1.7 % (3-12); MONOCYTE COUNT 0.2 K/uL (0-0.8); NEUTROPHIL (%) 93.4 % (45-76)
[2016-12-01 07:08] LABS: ANION GAP 10 MEQ/L (2-14); CHLORIDE 110 MEQ/L (99-109); GFR ESTIMATE (CALCULATED) 32 mL/min/; GLUCOSE 105 mg/dL (70-99); MAGNESIUM 1.3 mg/dl (1.3-2.7); POTASSIUM 4.7 MEQ/L (3.7-5.4); SAMPLE HEMOLYSIS CHECK 0; SAMPLE ICTERIC CHECK 0; SAMPLE LIPEMIA CHECK 0; SODIUM 137 MEQ/L (136-147); UREA NITROGEN (BUN) 54 mg/dL (9-23)
[2016-12-01 07:22] LABS: INTERNAL CONTROL VALID? YES
[2016-12-01 08:21] LABS: BASE EXCESS -4.6 mEq/L (-3 to +3); BICARBONATE 18.8 mEq/L (22-26); CARBOXY HGB 2.5 % (0-5); METHEMOGLOBIN 1.9 % (0-1.5); PCO2 27 mm Hg (35-45); PO2 54 mm Hg (80-100); pH 7.45 (7.35-7.45)
[2016-12-01 08:22] LABS: COMMENTS - BLOOD GASES A+C+; DEVICE CPAP; MECHANICAL RATE 20 resp/min; O2 FLOW 15 L/MIN; SITE RR
[2016-12-01 11:45] LABS: POINT-OF-CARE METER ID UU13113748
[2016-12-01 11:53] LABS: ALBUMIN 1.82 G/DL (3.6-4.9); ALBUMIN PERCENT 30.9 %; ALPHA-1 GLOBULIN 0.28 G/DL (0.15-0.40); ALPHA-1 PERCENT 4.7 %; ALPHA-2 GLOBULIN 1.09 G/DL (0.45-0.85); ALPHA-2 PERCENT 18.4 %; BETA PERCENT 11.4 %; GAMMA PERCENT 34.6 %
[2016-12-01 11:54] LABS: SERUM GEL NO. 19-3
[2016-12-01 12:01] LABS: ADD MIUA? YES; BILIRUBIN NEGATIVE; BLOOD MODERATE; COLOR AMBER ((YELLOW)); GLUCOSE (STRIP) NEGATIVE; KETONES NEGATIVE; LEUKOCYTES SMALL; NITRITE NEGATIVE; PROTEIN (STRIP) NEGATIVE; SPECIFIC GRAVITY 1.016 (1.000-1.030)
[2016-12-01 13:52] LABS: BACTERIA 1+ /HPF; CASTS NONE SEEN /LPF; EPITHELIAL CELLS RARE /HPF; MUCUS NONE SEEN /LPF; RED BLOOD CELLS 0-5 /HPF (0-5)
[2016-12-01 17:23] LABS: POINT-OF-CARE METER ID UU14162636
[2016-12-01 22:08] LABS: POINT-OF-CARE METER ID UU14162636
[2016-12-02] VITALS (12 sets, daily range): BP systolic 102–160; BP diastolic 56–83
[2016-12-02 05:54] LABS: HEMATOCRIT 22.3 % (38.0-50.0); MCH 30.8 PG (29.0-34.0); MCHC 32.7 G/DL (30.0-36.0); MCV 94.1 FL (86-99); PLATELET COUNT 179 K/uL (156-360); RBC DIS.WIDTH-CV 15.1 % (11.8-14.6); RBC DIS.WIDTH-SD 51.5 % (39-53); RED BLOOD COUNT 2.37 M/uL (4.00-5.50); WHITE BLOOD COUNT 12.3 K/uL (4.1-10.2)
[2016-12-02 06:16] LABS: PROTHROMBIN TIME 31.5 (9.2-11.2); PTT 66.9 (25-32)
[2016-12-02 06:45] LABS: ANION GAP 9 MEQ/L (2-14); CHLORIDE 109 MEQ/L (99-109); GFR ESTIMATE (CALCULATED) 32 mL/min/; GLUCOSE 108 mg/dL (70-99); POTASSIUM 4.2 MEQ/L (3.7-5.4); SAMPLE HEMOLYSIS CHECK 0; SAMPLE ICTERIC CHECK 0; SAMPLE LIPEMIA CHECK 0; SODIUM 135 MEQ/L (136-147); UREA NITROGEN (BUN) 59 mg/dL (9-23)
[2016-12-02 06:47] LABS: MAGNESIUM 1.6 mg/dl (1.3-2.7)
[2016-12-02 07:17] LABS: EOSINOPHIL (%) 6.2 % (0-5); EOSINOPHIL COUNT 0.8 K/uL (0-0.3); HEMATOLOGY COMMENT 1 SMEAR COMPATIBLE; IMMATURE GRANULOCYTE (%) 0.5 % (0.0-0.7); IMMATURE GRANULOCYTE COUNT 0.1 K/uL; LYMPHOCYTE COUNT 0.8 K/uL (1.0-2.8); MONOCYTE (%) 4.1 % (3-12); MONOCYTE COUNT 0.5 K/uL (0-0.8); NEUTROPHIL (%) 82.5 % (45-76); NEUTROPHIL COUNT 10.2 K/uL (1.8-6.4); PLAT.SUFFICIENCY ADEQUATE; USER ID TLW
[2016-12-02 13:01] LABS: POINT-OF-CARE METER ID UU13113731
[2016-12-02 16:39] LABS: POINT-OF-CARE METER ID UU14162636
[2016-12-02 21:40] LABS: POINT-OF-CARE METER ID UU14162636
[2016-12-03] VITALS (20 sets, daily range): BP systolic 109–150; BP diastolic 53–102
[2016-12-03 06:58] LABS: INTER. NORMALIZED RATIO 3.9; PROTHROMBIN TIME 41.5 (9.2-11.2)
[2016-12-03 07:04] LABS: ALKALINE PHOSPHATASE 52 IU/L (3-129); ANION GAP 11 MEQ/L (2-14); CHLORIDE 107 MEQ/L (99-109); GFR ESTIMATE (CALCULATED) 36 mL/min/; MAGNESIUM 1.5 mg/dl (1.3-2.7); POTASSIUM 4.5 MEQ/L (3.7-5.4); SAMPLE HEMOLYSIS CHECK 0; SAMPLE ICTERIC CHECK 0; SAMPLE LIPEMIA CHECK 0; SODIUM 135 MEQ/L (136-147); TOTAL BILIRUBIN 1.1 MG/DL (0.0-1.0); UREA NITROGEN (BUN) 64 mg/dL (9-23)
[2016-12-03 07:09] LABS: GLUCOSE 167 mg/dL (70-99)
[2016-12-03 07:22] LABS: EOSINOPHIL (%) 0 % (0-5); HEMATOCRIT 20.5 % (38.0-50.0); IMMATURE GRANULOCYTE (%) 0.3 % (0.0-0.7); LYMPHOCYTE COUNT 0.4 K/uL (1.0-2.8); MCH 31.2 PG (29.0-34.0); MCHC 33.7 G/DL (30.0-36.0); MCV 92.8 FL (86-99); MONOCYTE (%) 1.7 % (3-12); MONOCYTE COUNT 0.2 K/uL (0-0.8); NEUTROPHIL (%) 93.4 % (45-76); NEUTROPHIL COUNT 8.8 K/uL (1.8-6.4); PLATELET COUNT 167 K/uL (156-360); RBC DIS.WIDTH-CV 14.6 % (11.8-14.6); RBC DIS.WIDTH-SD 49.8 % (39-53); RED BLOOD COUNT 2.21 M/uL (4.00-5.50); WHITE BLOOD COUNT 9.4 K/uL (4.1-10.2)
[2016-12-03 09:19] LABS: BASE EXCESS -8.2 mEq/L (-3 to +3); BICARBONATE 16.4 mEq/L (22-26); CARBOXY HGB 2.1 % (0-5); METHEMOGLOBIN 1.4 % (0-1.5); PCO2 29 mm Hg (35-45); PO2 76 mm Hg (80-100); pH 7.36 (7.35-7.45)
[2016-12-03 09:20] LABS: COMMENTS - BLOOD GASES +C; DEVICE HHFNC; FI02 80 %; O2 FLOW 35 L/MIN; SITE RR +A; TOTAL RESP RATE 20 resp/min
[2016-12-03 14:20] LABS: POINT-OF-CARE METER ID UU13113803
[2016-12-03 16:33] LABS: POINT-OF-CARE METER ID UU13113748
[2016-12-04] VITALS (8 sets, daily range): BP systolic 139–170; BP diastolic 74–89
[2016-12-04 06:21] LABS: EOSINOPHIL (%) 0 % (0-5); HEMATOCRIT 26.3 % (38.0-50.0); IMMATURE GRANULOCYTE (%) 0.6 % (0.0-0.7); IMMATURE GRANULOCYTE COUNT 0.1 K/uL; LYMPHOCYTE COUNT 0.6 K/uL (1.0-2.8); MCH 30.3 PG (29.0-34.0); MCHC 33.1 G/DL (30.0-36.0); MCV 91.6 FL (86-99); MONOCYTE (%) 3.8 % (3-12); MONOCYTE COUNT 0.4 K/uL (0-0.8); NEUTROPHIL (%) 89.9 % (45-76); NEUTROPHIL COUNT 9.8 K/uL (1.8-6.4); NRBC (%) 0.3 /100 WBC (0-0); PLATELET COUNT 163 K/uL (156-360); RBC DIS.WIDTH-CV 14.8 % (11.8-14.6); RBC DIS.WIDTH-SD 49.4 % (39-53); WHITE BLOOD COUNT 10.9 K/uL (4.1-10.2)
[2016-12-04 06:22] LABS: RED BLOOD COUNT 2.87 M/uL (4.00-5.50)
[2016-12-04 06:28] LABS: ANION GAP 12 MEQ/L (2-14); CHLORIDE 107 MEQ/L (99-109); GFR ESTIMATE (CALCULATED) 41 mL/min/; GLUCOSE 157 mg/dL (70-99); MAGNESIUM 1.6 mg/dl (1.3-2.7); POTASSIUM 3.8 MEQ/L (3.7-5.4); SAMPLE HEMOLYSIS CHECK 0; SAMPLE ICTERIC CHECK 0; SAMPLE LIPEMIA CHECK 0; SODIUM 135 MEQ/L (136-147); UREA NITROGEN (BUN) 72 mg/dL (9-23)
[2016-12-04 06:36] LABS: PROTHROMBIN TIME 48.8 (9.2-11.2)
[2016-12-04 06:41] LABS: INTER. NORMALIZED RATIO 4.6
[2016-12-04 07:44] LABS: POINT-OF-CARE METER ID UU13113698
[2016-12-04 11:31] LABS: POINT-OF-CARE METER ID UU13113698
[2016-12-04 14:56] LABS: ABSOLUTE RETICULOCYTE CT. 0.07 M/uL (0.02-0.08); IMM.RETIC FRACTION 14.5 % (3-19); RETICULOCYTE COUNT 2.3 % (0.5-1.8)
[2016-12-04 16:21] LABS: POINT-OF-CARE METER ID UU14174216
[2016-12-04 21:14] LABS: POINT-OF-CARE METER ID UU13113698
[2016-12-05 04:42] VITALS: BP 123/85
[2016-12-05 07:00] VITALS: BP 172/92
[2016-12-05 07:15] LABS: EOSINOPHIL (%) 0 % (0-5); HEMATOCRIT 26.4 % (38.0-50.0); IMMATURE GRANULOCYTE (%) 0.5 % (0.0-0.7); IMMATURE GRANULOCYTE COUNT 0.1 K/uL; LYMPHOCYTE COUNT 0.4 K/uL (1.0-2.8); MCH 30.1 PG (29.0-34.0); MCHC 33.3 G/DL (30.0-36.0); MCV 90.4 FL (86-99); MEAN PLAT.VOLUME 10.5 uM^3 (9.0-12.4); MONOCYTE (%) 8.3 % (3-12); MONOCYTE COUNT 0.9 K/uL (0-0.8); NEUTROPHIL (%) 87.6 % (45-76); NEUTROPHIL COUNT 9.7 K/uL (1.8-6.4); NRBC (%) 0.5 /100 WBC (0-0); PLATELET COUNT 168 K/uL (156-360); RBC DIS.WIDTH-CV 15.1 % (11.8-14.6); RBC DIS.WIDTH-SD 49.4 % (39-53); RED BLOOD COUNT 2.92 M/uL (4.00-5.50)
[2016-12-05 07:20] LABS: PROTHROMBIN TIME 50.8 (9.2-11.2)
[2016-12-05 07:32] LABS: INTER. NORMALIZED RATIO 4.8
[2016-12-05 07:34] LABS: ANION GAP 11 MEQ/L (2-14); CHLORIDE 109 MEQ/L (99-109); GFR ESTIMATE (CALCULATED) 47 mL/min/; GLUCOSE 145 mg/dL (70-99); MAGNESIUM 1.5 mg/dl (1.3-2.7); POTASSIUM 3.9 MEQ/L (3.7-5.4); SAMPLE HEMOLYSIS CHECK 0; SAMPLE ICTERIC CHECK 0; SAMPLE LIPEMIA CHECK 0; SODIUM 141 MEQ/L (136-147); UREA NITROGEN (BUN) 65 mg/dL (9-23)
[2016-12-05 08:05] LABS: POINT-OF-CARE METER ID UU13113698
[2016-12-05 12:16] VITALS: BP 158/98
[2016-12-05 17:20] VITALS: BP 178/90
[2016-12-05 17:21] VITALS: BP 112/53
[2016-12-05 19:20] VITALS: BP 171/79
[2016-12-06 00:25] VITALS: BP 132/86
[2016-12-06 04:00] VITALS: BP 160/71
[2016-12-06 06:32] LABS: EOSINOPHIL (%) 0.3 % (0-5); HEMATOCRIT 26.4 % (38.0-50.0); IMMATURE GRANULOCYTE (%) 1.6 % (0.0-0.7); IMMATURE GRANULOCYTE COUNT 0.2 K/uL; LYMPHOCYTE COUNT 0.8 K/uL (1.0-2.8); MCH 29.7 PG (29.0-34.0); MCHC 32.6 G/DL (30.0-36.0); MEAN PLAT.VOLUME 10.6 uM^3 (9.0-12.4); MONOCYTE (%) 4.1 % (3-12); MONOCYTE COUNT 0.5 K/uL (0-0.8); NEUTROPHIL (%) 86.7 % (45-76); NEUTROPHIL COUNT 9.5 K/uL (1.8-6.4); NRBC (%) 0.6 /100 WBC (0-0); PLATELET COUNT 149 K/uL (156-360); RBC DIS.WIDTH-SD 49.5 % (39-53); WHITE BLOOD COUNT 10.9 K/uL (4.1-10.2)
[2016-12-06 06:44] LABS: PROTHROMBIN TIME 52.4 (9.2-11.2)
[2016-12-06 06:59] LABS: ANION GAP 10 MEQ/L (2-14); CHLORIDE 110 MEQ/L (99-109); MAGNESIUM 1.5 mg/dl (1.3-2.7); POTASSIUM 3.3 MEQ/L (3.7-5.4); SAMPLE HEMOLYSIS CHECK 0; SAMPLE ICTERIC CHECK 0; SAMPLE LIPEMIA CHECK 0; SODIUM 140 MEQ/L (136-147); TOTAL BILIRUBIN 1.1 MG/DL (0.0-1.0)
[2016-12-06 07:04] LABS: LACTATE DEHYDROGENASE 360 IU/L (20-246)
[2016-12-06 07:05] LABS: ALKALINE PHOSPHATASE 73 IU/L (3-129); GFR ESTIMATE (CALCULATED) > 59 mL/min/; GLUCOSE 162 mg/dL (70-99); UREA NITROGEN (BUN) 58 mg/dL (9-23)
[2016-12-06 07:15] LABS: ANION GAP 10 MEQ/L (2-14); CHLORIDE 110 MEQ/L (99-109); GFR ESTIMATE (CALCULATED) > 59 mL/min/; GLUCOSE 162 mg/dL (70-99); POTASSIUM 3.3 MEQ/L (3.7-5.4); SAMPLE HEMOLYSIS CHECK 0; SAMPLE ICTERIC CHECK 0; SAMPLE LIPEMIA CHECK 0; SODIUM 140 MEQ/L (136-147); UREA NITROGEN (BUN) 58 mg/dL (9-23)
[2016-12-06 07:25] VITALS: BP 185/84
[2016-12-06 07:28] LABS: HEM NON-PRINT 2 NL/NC; INTER. NORMALIZED RATIO 4.9
[2016-12-06 11:08] VITALS: BP 172/81
[2016-12-06 14:53] VITALS: BP 182/90
[2016-12-06 16:21] LABS: POINT-OF-CARE METER ID UU13113698
[2016-12-06 21:00] VITALS: BP 162/74
[2016-12-07] VITALS (7 sets, daily range): BP systolic 130–176; BP diastolic 72–92
[2016-12-07 06:57] LABS: INTER. NORMALIZED RATIO 3.5; PROTHROMBIN TIME 36.8 (9.2-11.2)
[2016-12-07 06:59] LABS: EOSINOPHIL (%) 0 % (0-5); IMMATURE GRANULOCYTE (%) 1.2 % (0.0-0.7); IMMATURE GRANULOCYTE COUNT 0.1 K/uL; LYMPHOCYTE COUNT 0.6 K/uL (1.0-2.8); MCHC 33.3 G/DL (30.0-36.0); MONOCYTE COUNT 0.4 K/uL (0-0.8); NEUTROPHIL (%) 88.5 % (45-76); NEUTROPHIL COUNT 9.5 K/uL (1.8-6.4); NRBC (%) 0.6 /100 WBC (0-0); PLATELET COUNT 145 K/uL (156-360); RBC DIS.WIDTH-CV 15.1 % (11.8-14.6); RBC DIS.WIDTH-SD 48.3 % (39-53); WHITE BLOOD COUNT 10.8 K/uL (4.1-10.2)
[2016-12-07 07:38] LABS: ANION GAP 12 MEQ/L (2-14); CHLORIDE 109 MEQ/L (99-109); GFR ESTIMATE (CALCULATED) > 59 mL/min/; GLUCOSE 169 mg/dL (70-99); MAGNESIUM 1.4 mg/dl (1.3-2.7); POTASSIUM 3.3 MEQ/L (3.7-5.4); SAMPLE HEMOLYSIS CHECK 0; SAMPLE ICTERIC CHECK 0; SAMPLE LIPEMIA CHECK 0; SODIUM 144 MEQ/L (136-147); UREA NITROGEN (BUN) 58 mg/dL (9-23)
[2016-12-07 08:06] LABS: POINT-OF-CARE METER ID UU14174216
[2016-12-07 21:10] LABS: POINT-OF-CARE METER ID UU13113781
[2016-12-08 05:02] VITALS: BP 158/87
[2016-12-08 06:15] LABS: EOSINOPHIL (%) 0 % (0-5); HEMATOCRIT 26.4 % (38.0-50.0); IMMATURE GRANULOCYTE (%) 1.7 % (0.0-0.7); IMMATURE GRANULOCYTE COUNT 0.2 K/uL; LYMPHOCYTE COUNT 0.7 K/uL (1.0-2.8); MCHC 33.3 G/DL (30.0-36.0); MCV 90.1 FL (86-99); MEAN PLAT.VOLUME 10.5 uM^3 (9.0-12.4); MONOCYTE (%) 2.4 % (3-12); MONOCYTE COUNT 0.3 K/uL (0-0.8); NEUTROPHIL (%) 89.2 % (45-76); NEUTROPHIL COUNT 9.3 K/uL (1.8-6.4); NRBC (%) 0.7 /100 WBC (0-0); PLATELET COUNT 143 K/uL (156-360); RBC DIS.WIDTH-CV 15.5 % (11.8-14.6); RBC DIS.WIDTH-SD 48.9 % (39-53); RED BLOOD COUNT 2.93 M/uL (4.00-5.50); WHITE BLOOD COUNT 10.4 K/uL (4.1-10.2)
[2016-12-08 06:41] LABS: ANION GAP 9 MEQ/L (2-14); CHLORIDE 107 MEQ/L (99-109); GFR ESTIMATE (CALCULATED) 54 mL/min/; GLUCOSE 161 mg/dL (70-99); MAGNESIUM 1.4 mg/dl (1.3-2.7); POTASSIUM 3.1 MEQ/L (3.7-5.4); SAMPLE HEMOLYSIS CHECK 0; SAMPLE ICTERIC CHECK 0; SAMPLE LIPEMIA CHECK 0; SODIUM 143 MEQ/L (136-147); UREA NITROGEN (BUN) 63 mg/dL (9-23)
[2016-12-08 06:46] LABS: PROTHROMBIN TIME 19.3 (9.2-11.2)
[2016-12-08 06:47] LABS: INTER. NORMALIZED RATIO 1.9
[2016-12-08 07:40] VITALS: BP 146/85
[2016-12-08 07:55] LABS: POINT-OF-CARE METER ID UU13113698
[2016-12-08 11:29] LABS: POINT-OF-CARE METER ID UU13113698
[2016-12-08 11:50] VITALS: BP 142/83
[2016-12-08 14:43] LABS: TYPE OF FLUID PLEURAL
[2016-12-08 15:00] VITALS: BP 150/72
[2016-12-08 15:20] LABS: BODY FLUID RBC'S 1000 /MM^3 (0-100)
[2016-12-08 15:22] LABS: BODY FLUID LDH 169 IU/L
[2016-12-08 15:40] LABS: BODY FLUID WBC'S 61 /MM^3 (0-500); WBC AREA COUNTED 18; WBC DILUTION 1; WHITE CELL RAW COUNT 109
[2016-12-08 15:43] LABS: BODY FLUID EOSINOPHILS 0 % (0-25); MONO RAW COUNT 82; MONONUCLEAR WBC'S 82 %; POLY RAW COUNT 18; POLYNUCLEAR WBC'S 18 % (0-25)
[2016-12-08 16:30] LABS: ALKALINE PHOSPHATASE 60 IU/L (3-129); DIRECT BILIRUBIN 0.6 mg/dL (0.0-0.3); TOTAL BILIRUBIN 1.2 MG/DL (0.0-1.0)
[2016-12-08] MEDS ORDERED: MYCOPHENOLATE250 MG PO (16:35)
[2016-12-08] MEDS ORDERED: NOVOLOG PE100 UNITS/ SC (16:35)
[2016-12-08] MEDS ORDERED: SANTYL30 GM TP (16:35)
[2016-12-08 16:36] LABS: POINT-OF-CARE METER ID UU13113698
[2016-12-08] MEDS ORDERED: ADVAIR HFA120 INHALA IH (16:36)
[2016-12-08] MEDS ORDERED: ALPRAZOLAM0.25 M2 PO (16:37)
[2016-12-08] MEDS ORDERED: CLONIDINE HCL0.1 MG PO (16:37)
[2016-12-08] MEDS ORDERED: ARANESP60 MCG/0.3 SC (16:38)
[2016-12-08] MEDS ORDERED: TAMSULOSIN HCL0.4 MG PO (16:38)
[2016-12-08] MEDS ORDERED: SPIRIVA RESPIMAT4 GM IH (16:38)
[2016-12-08 16:41] LABS: BODY FLUID PROTEIN < 3.0 G/DL
[2016-12-08 20:00] VITALS: BP 170/76
[2016-12-08 21:01] LABS: POINT-OF-CARE METER ID UU14174216
[2016-12-08 23:55] VITALS: BP 170/80
[2016-12-09] VITALS (7 sets, daily range): BP systolic 125–160; BP diastolic 63–93
[2016-12-09 06:42] LABS: EOSINOPHIL (%) 0 % (0-5); HEMATOCRIT 27.6 % (38.0-50.0); IMMATURE GRANULOCYTE (%) 1.5 % (0.0-0.7); IMMATURE GRANULOCYTE COUNT 0.2 K/uL; LYMPHOCYTE COUNT 0.7 K/uL (1.0-2.8); MCH 29.2 PG (29.0-34.0); MCHC 32.2 G/DL (30.0-36.0); MCV 90.5 FL (86-99); MEAN PLAT.VOLUME 10.1 uM^3 (9.0-12.4); MONOCYTE (%) 3.1 % (3-12); MONOCYTE COUNT 0.4 K/uL (0-0.8); NEUTROPHIL (%) 89.4 % (45-76); NEUTROPHIL COUNT 10.8 K/uL (1.8-6.4); NRBC (%) 1.1 /100 WBC (0-0); PLATELET COUNT 124 K/uL (156-360); RBC DIS.WIDTH-CV 15.7 % (11.8-14.6); RBC DIS.WIDTH-SD 48.9 % (39-53); RED BLOOD COUNT 3.05 M/uL (4.00-5.50); WHITE BLOOD COUNT 12.1 K/uL (4.1-10.2)
[2016-12-09 06:52] LABS: INTER. NORMALIZED RATIO 1.7; PROTHROMBIN TIME 17.4 (9.2-11.2)
[2016-12-09 07:03] LABS: ANION GAP 10 MEQ/L (2-14); CHLORIDE 104 MEQ/L (99-109); GFR ESTIMATE (CALCULATED) 54 mL/min/; GLUCOSE 158 mg/dL (70-99); MAGNESIUM 1.4 mg/dl (1.3-2.7); POTASSIUM 3.2 MEQ/L (3.7-5.4); SAMPLE HEMOLYSIS CHECK 0; SAMPLE ICTERIC CHECK 0; SAMPLE LIPEMIA CHECK 0; SODIUM 141 MEQ/L (136-147); UREA NITROGEN (BUN) 67 mg/dL (9-23)
[2016-12-09 16:22] LABS: POINT-OF-CARE METER ID UU14174216
[2016-12-10 04:00] VITALS: BP 127/80
[2016-12-10 05:51] LABS: HEMATOCRIT 27.2 % (38.0-50.0); MCH 29.7 PG (29.0-34.0); MCHC 32.7 G/DL (30.0-36.0); MCV 90.7 FL (86-99); MEAN PLAT.VOLUME 10.5 uM^3 (9.0-12.4); PLATELET COUNT 119 K/uL (156-360); RBC DIS.WIDTH-CV 15.3 % (11.8-14.6); RBC DIS.WIDTH-SD 47.9 % (39-53); WHITE BLOOD COUNT 12.6 K/uL (4.1-10.2)
[2016-12-10 06:11] LABS: INTER. NORMALIZED RATIO 1.6; PROTHROMBIN TIME 16.4 (9.2-11.2)
[2016-12-10 06:14] LABS: ANION GAP 9 MEQ/L (2-14); CHLORIDE 100 MEQ/L (99-109); GFR ESTIMATE (CALCULATED) > 59 mL/min/; GLUCOSE 176 mg/dL (70-99); IRON 66 MCG/DL (35-150); MAGNESIUM 1.4 mg/dl (1.3-2.7); POTASSIUM 3.1 MEQ/L (3.7-5.4); SAMPLE HEMOLYSIS CHECK 0; SAMPLE ICTERIC CHECK 0; SAMPLE LIPEMIA CHECK 0; SODIUM 139 MEQ/L (136-147); UREA NITROGEN (BUN) 74 mg/dL (9-23)
[2016-12-10 07:00] VITALS: BP 134/96
[2016-12-10 07:29] LABS: POINT-OF-CARE METER ID UU13113781
[2016-12-10 08:33] LABS: EOSINOPHIL (%) 0 % (0-5); HEMATOLOGY COMMENT 1 SMEAR COMPATIBLE; IMMATURE GRANULOCYTE (%) 2.4 % (0.0-0.7); IMMATURE GRANULOCYTE COUNT 0.3 K/uL; LYMPHOCYTE COUNT 0.6 K/uL (1.0-2.8); MONOCYTE (%) 4.1 % (3-12); MONOCYTE COUNT 0.5 K/uL (0-0.8); NEUTROPHIL COUNT 11.2 K/uL (1.8-6.4); PLAT.SUFFICIENCY DECREASED; USER ID TLW
[2016-12-10 11:11] LABS: POINT-OF-CARE METER ID UU14174216
[2016-12-10 11:30] VITALS: BP 141/67
[2016-12-10 16:15] LABS: POINT-OF-CARE METER ID UU13113698
[2016-12-10 16:50] VITALS: BP 157/92
[2016-12-10 20:00] VITALS: BP 129/67
[2016-12-10 21:29] LABS: POINT-OF-CARE METER ID UU13113698
[2016-12-10 23:51] VITALS: BP 134/90
[2016-12-11 04:00] VITALS: BP 145/84
[2016-12-11 06:42] LABS: NRBC (%) 1.7 /100 WBC (0-0)
[2016-12-11 06:47] LABS: INTER. NORMALIZED RATIO 1.9; PROTHROMBIN TIME 19.2 (9.2-11.2)
[2016-12-11 07:02] LABS: ANION GAP 10 MEQ/L (2-14); CHLORIDE 97 MEQ/L (99-109); GFR ESTIMATE (CALCULATED) > 59 mL/min/; GLUCOSE 143 mg/dL (70-99); MAGNESIUM 1.4 mg/dl (1.3-2.7); POTASSIUM 3.1 MEQ/L (3.7-5.4); SAMPLE HEMOLYSIS CHECK 0; SAMPLE ICTERIC CHECK 0; SAMPLE LIPEMIA CHECK 0; SODIUM 136 MEQ/L (136-147); UREA NITROGEN (BUN) 73 mg/dL (9-23)
[2016-12-11 07:20] LABS: HEMATOCRIT 26.8 % (38.0-50.0); MCH 29.9 PG (29.0-34.0); MCHC 33.2 G/DL (30.0-36.0); MCV 89.9 FL (86-99); MEAN PLAT.VOLUME 10.2 uM^3 (9.0-12.4); PLATELET COUNT 110 K/uL (156-360); RBC DIS.WIDTH-CV 15.6 % (11.8-14.6); RBC DIS.WIDTH-SD 48.1 % (39-53); RED BLOOD COUNT 2.98 M/uL (4.00-5.50)
[2016-12-11 07:21] LABS: WHITE BLOOD COUNT 18.6 K/uL (4.1-10.2)
[2016-12-11 07:35] LABS: EOSINOPHIL (%) 0 % (0-5); HEMATOLOGY COMMENT 1 SMEAR COMPATIBLE; IMMATURE GRANULOCYTE (%) 2.6 % (0.0-0.7); IMMATURE GRANULOCYTE COUNT 0.5 K/uL; LYMPHOCYTE COUNT 1.2 K/uL (1.0-2.8); MONOCYTE (%) 2.7 % (3-12); MONOCYTE COUNT 0.5 K/uL (0-0.8); NEUTROPHIL (%) 88.3 % (45-76); NEUTROPHIL COUNT 16.4 K/uL (1.8-6.4); PLAT.SUFFICIENCY DECREASED; USER ID TLW
[2016-12-11 07:50] LABS: POINT-OF-CARE METER ID UU13113698
[2016-12-11 08:00] VITALS: BP 168/82
[2016-12-11 11:30] VITALS: BP 173/77
[2016-12-11 16:48] VITALS: BP 111/90
[2016-12-11 18:53] VITALS: BP 159/88
[2016-12-11 23:59] VITALS: BP 136/73
[2016-12-12 03:09] VITALS: BP 129/80
[2016-12-12 07:02] LABS: HEMATOCRIT 27.4 % (38.0-50.0); MCHC 33.2 G/DL (30.0-36.0); MCV 90.4 FL (86-99); MEAN PLAT.VOLUME 10.7 uM^3 (9.0-12.4); NRBC (%) 1.1 /100 WBC (0-0); PLATELET COUNT 101 K/uL (156-360); RBC DIS.WIDTH-CV 16.1 % (11.8-14.6); RBC DIS.WIDTH-SD 47.9 % (39-53); RED BLOOD COUNT 3.03 M/uL (4.00-5.50); WHITE BLOOD COUNT 19.2 K/uL (4.1-10.2)
[2016-12-12 07:09] LABS: EOSINOPHIL (%) 0 % (0-5); IMMATURE GRANULOCYTE COUNT 0.6 K/uL; LYMPHOCYTE COUNT 0.9 K/uL (1.0-2.8); MONOCYTE (%) 4.5 % (3-12); MONOCYTE COUNT 0.9 K/uL (0-0.8); NEUTROPHIL (%) 87.6 % (45-76); NEUTROPHIL COUNT 16.9 K/uL (1.8-6.4)
[2016-12-12 07:19] LABS: INTER. NORMALIZED RATIO 2.5; PROTHROMBIN TIME 25.9 (9.2-11.2)
[2016-12-12 07:30] VITALS: BP 162/75
[2016-12-12 07:31] LABS: ANION GAP 10 MEQ/L (2-14); CHLORIDE 98 MEQ/L (99-109); GFR ESTIMATE (CALCULATED) 54 mL/min/; GLUCOSE 124 mg/dL (70-99); MAGNESIUM 1.4 mg/dl (1.3-2.7); POTASSIUM 3.6 MEQ/L (3.7-5.4); SAMPLE HEMOLYSIS CHECK 0; SAMPLE ICTERIC CHECK 0; SAMPLE LIPEMIA CHECK 0; SODIUM 135 MEQ/L (136-147); UREA NITROGEN (BUN) 75 mg/dL (9-23)
[2016-12-12 07:46] LABS: POINT-OF-CARE METER ID UU14174216
[2016-12-12 08:34] LABS: HEMATOLOGY COMMENT 1 SMEAR COMPATIBLE; USER ID STC
[2016-12-12 11:29] LABS: POINT-OF-CARE METER ID UU13113698
[2016-12-12 11:30] VITALS: BP 117/76
[2016-12-12 16:14] LABS: POINT-OF-CARE METER ID UU14174216
[2016-12-12 16:30] VITALS: BP 139/91
[2016-12-12 19:46] VITALS: BP 170/81
[2016-12-12 21:17] LABS: POINT-OF-CARE METER ID UU14174216
[2016-12-12 23:51] VITALS: BP 135/78
[2016-12-13 03:01] VITALS: BP 119/64
[2016-12-13 06:33] LABS: HEMATOCRIT 28.9 % (38.0-50.0); MCH 30.3 PG (29.0-34.0); MCHC 32.9 G/DL (30.0-36.0); MEAN PLAT.VOLUME 11.5 uM^3 (9.0-12.4); NRBC (%) 0.8 /100 WBC (0-0); PLATELET COUNT 109 K/uL (156-360); RBC DIS.WIDTH-CV 16.9 % (11.8-14.6); RBC DIS.WIDTH-SD 49.2 % (39-53); RED BLOOD COUNT 3.14 M/uL (4.00-5.50); WHITE BLOOD COUNT 21.3 K/uL (4.1-10.2)
[2016-12-13 07:05] LABS: EOSINOPHIL (%) 0 % (0-5); HEMATOLOGY COMMENT 1 SMEAR COMPATIBLE; IMMATURE GRANULOCYTE (%) 3.4 % (0.0-0.7); IMMATURE GRANULOCYTE COUNT 0.7 K/uL; LYMPHOCYTE COUNT 0.8 K/uL (1.0-2.8); MONOCYTE (%) 4.3 % (3-12); MONOCYTE COUNT 0.9 K/uL (0-0.8); NEUTROPHIL (%) 88.3 % (45-76); NEUTROPHIL COUNT 18.8 K/uL (1.8-6.4); USER ID CCL
[2016-12-13 07:11] LABS: INTER. NORMALIZED RATIO 2.5; PROTHROMBIN TIME 26.7 (9.2-11.2)
[2016-12-13 07:17] LABS: ANION GAP 10 MEQ/L (2-14); CHLORIDE 95 MEQ/L (99-109); GFR ESTIMATE (CALCULATED) > 59 mL/min/; GLUCOSE 122 mg/dL (70-99); MAGNESIUM 1.4 mg/dl (1.3-2.7); POTASSIUM 3.7 MEQ/L (3.7-5.4); SAMPLE HEMOLYSIS CHECK 0; SAMPLE ICTERIC CHECK 0; SAMPLE LIPEMIA CHECK 0; SODIUM 135 MEQ/L (136-147); UREA NITROGEN (BUN) 66 mg/dL (9-23)
[2016-12-13 07:36] LABS: POINT-OF-CARE METER ID UU13113781
[2016-12-13 07:54] VITALS: BP 129/77
[2016-12-13 11:35] VITALS: BP 145/82
[2016-12-13 11:49] LABS: POINT-OF-CARE METER ID UU13113781
[2016-12-13 15:21] VITALS: BP 118/61
[2016-12-13 16:42] LABS: POINT-OF-CARE METER ID UU14174216
[2016-12-13 19:34] VITALS: BP 172/90
[2016-12-13 21:12] LABS: POINT-OF-CARE METER ID UU13113781
[2016-12-13 23:17] VITALS: BP 129/73
[2016-12-14 03:51] VITALS: BP 129/87
[2016-12-14 06:59] LABS: INTER. NORMALIZED RATIO 2.7; PROTHROMBIN TIME 28.6 (9.2-11.2)
[2016-12-14 07:01] LABS: HEMATOCRIT 28.3 % (38.0-50.0); MCHC 33.6 G/DL (30.0-36.0); MCV 92.5 FL (86-99); MEAN PLAT.VOLUME 11.7 uM^3 (9.0-12.4); NRBC (%) 0.4 /100 WBC (0-0); PLATELET COUNT 105 K/uL (156-360); RBC DIS.WIDTH-CV 17.6 % (11.8-14.6); RBC DIS.WIDTH-SD 50.7 % (39-53); RED BLOOD COUNT 3.06 M/uL (4.00-5.50); WHITE BLOOD COUNT 23.9 K/uL (4.1-10.2)
[2016-12-14 07:28] LABS: ANION GAP 9 MEQ/L (2-14); CHLORIDE 94 MEQ/L (99-109); GFR ESTIMATE (CALCULATED) > 59 mL/min/; GLUCOSE 134 mg/dL (70-99); POTASSIUM 3.8 MEQ/L (3.7-5.4); SAMPLE HEMOLYSIS CHECK 0; SAMPLE ICTERIC CHECK 0; SAMPLE LIPEMIA CHECK 0; SODIUM 131 MEQ/L (136-147); UREA NITROGEN (BUN) 60 mg/dL (9-23)
[2016-12-14 07:47] LABS: EOSINOPHIL (%) 0 % (0-5); HEMATOLOGY COMMENT 1 SMEAR COMPATIBLE; IMMATURE GRANULOCYTE (%) 2.4 % (0.0-0.7); IMMATURE GRANULOCYTE COUNT 0.6 K/uL; LYMPHOCYTE COUNT 0.9 K/uL (1.0-2.8); MONOCYTE (%) 4.8 % (3-12); MONOCYTE COUNT 1.2 K/uL (0-0.8); NEUTROPHIL COUNT 21.3 K/uL (1.8-6.4); PLAT.SUFFICIENCY DECREASED; USER ID TLW
[2016-12-14 08:00] VITALS: BP 116/86
[2016-12-14 11:30] VITALS: BP 143/85
[2016-12-14 11:45] LABS: POINT-OF-CARE METER ID UU14174216
[2016-12-14 15:26] VITALS: BP 152/83
[2016-12-14 19:56] VITALS: BP 122/89
[2016-12-14 20:59] LABS: POINT-OF-CARE METER ID UU14174216
[2016-12-15 00:54] VITALS: BP 148/86
[2016-12-15 05:12] VITALS: BP 138/76
[2016-12-15 07:37] LABS: HEMATOCRIT 30.9 % (38.0-50.0); MCH 30.1 PG (29.0-34.0); MCHC 32.4 G/DL (30.0-36.0); MCV 93.1 FL (86-99); MEAN PLAT.VOLUME 11.2 uM^3 (9.0-12.4); PLATELET COUNT 98 K/uL (156-360); RBC DIS.WIDTH-CV 18.5 % (11.8-14.6); RED BLOOD COUNT 3.32 M/uL (4.00-5.50); WHITE BLOOD COUNT 21.3 K/uL (4.1-10.2)
[2016-12-15 07:48] LABS: INTER. NORMALIZED RATIO 2.8; PROTHROMBIN TIME 29.2 (9.2-11.2)
[2016-12-15 07:49] VITALS: BP 160/80
[2016-12-15 07:58] VITALS: BP 160/80
[2016-12-15 08:25] LABS: ANION GAP 14 MEQ/L (2-14); CHLORIDE 97 MEQ/L (99-109); GFR ESTIMATE (CALCULATED) > 59 mL/min/; GLUCOSE 128 mg/dL (70-99); SAMPLE HEMOLYSIS CHECK 1; SAMPLE ICTERIC CHECK 0; SAMPLE LIPEMIA CHECK 0; SODIUM 132 MEQ/L (136-147); UREA NITROGEN (BUN) 53 mg/dL (9-23)
[2016-12-15 08:32] LABS: POTASSIUM 4.9 MEQ/L (3.7-5.4)
[2016-12-15 11:11] VITALS: BP 140/70
[2016-12-15] MEDS ORDERED: LEVOFLOXACIN750 MG PO (15:54)
[2016-12-15] MEDS ORDERED: COUMADIN5 MG PO (15:54)
[2016-12-15] MEDS ORDERED: DIGOXIN125 MCG PO (15:54)
[2016-12-15] MEDS ORDERED: FUROSEMIDE20 MG PO (15:56)
[2016-12-15] MEDS ORDERED: CARDIZEM60 MG PO (15:56)
[2016-12-15] MEDS ORDERED: PREDNISONE10 MG PO (15:58)
[2016-12-15 17:12] VITALS: BP 160/80
== END 2016-12-15 18:34 | DRG 166 ==
LOC: EME 01:40 → 4WEST 03:56 → EDOF 03:56 → 4WEST 04:31 → 2EAST 11-27 00:30 → 4WEST 12-01 10:57 → 4EAST 12-04 01:31
PROVIDERS: Emergency Medicine; Hospitalist; Internal Medicine; Internal Medicine Critical Care Medicine; Internal Medicine Hematology & Oncology; Internal Medicine Nephrology; Internal Medicine Pulmonary Disease; Radiology Diagnostic Radiology; Surgery
DX: J96.01 Acute respiratory failure with hypoxia (principal); J15.9 Unspecified bacterial pneumonia; N17.0 Acute kidney failure with tubular necrosis; I50.23 Acute on chronic systolic (congestive) heart failure; E87.1 Hypo-osmolality and hyponatremia; I42.0 Dilated cardiomyopathy; I48.1 Persistent atrial fibrillation; I48.92 Unspecified atrial flutter; J90 Pleural effusion, not elsewhere classified; E87.0 Hyperosmolality and hypernatremia; E87.2 Acidosis; I82.442 Acute embolism and thrombosis of left tibial vein; I82.512 Chronic embolism and thrombosis of left femoral vein; R04.2 Hemoptysis; I13.0 Hypertensive heart and chronic kidney disease with heart failure and stage 1 through stage 4 chronic kidney disease, or unspecified chronic kidney disease; I82.532 Chronic embolism and thrombosis of left popliteal vein; I82.592 Chronic embolism and thrombosis of other specified deep vein of left lower extremity; J84.9 Interstitial pulmonary disease, unspecified; L89.152 Pressure ulcer of sacral region, stage 2; N18.3 Chronic kidney disease, stage 3 (moderate); I35.0 Nonrheumatic aortic (valve) stenosis; E78.5 Hyperlipidemia, unspecified; I25.10 Atherosclerotic heart disease of native coronary artery without angina pectoris; E87.6 Hypokalemia; E83.51 Hypocalcemia; Z79.01 Long term (current) use of anticoagulants; J44.9 Chronic obstructive pulmonary disease, unspecified; I95.9 Hypotension, unspecified; E66.9 Obesity, unspecified; R00.0 Tachycardia, unspecified; Z68.30 Body mass index [BMI] 30.0-30.9, adult; R79.1 Abnormal coagulation profile; T45.515A Adverse effect of anticoagulants, initial encounter; I80.02 Phlebitis and thrombophlebitis of superficial vessels of left lower extremity; R33.9 Retention of urine, unspecified; N28.1 Cyst of kidney, acquired; K59.00 Constipation, unspecified; E83.42 Hypomagnesemia; G47.33 Obstructive sleep apnea (adult) (pediatric); F41.9 Anxiety disorder, unspecified; D64.9 Anemia, unspecified; R19.5 Other fecal abnormalities
CPT/HCPCS: 36600; 71010; 71250; 76770; 78582; 80047; 80048; 80048 91; 80053; 80069; 80076; 80162; 80202; 81003; 82040; 82272; 82330; 82436; 82570; 82607; 82728; 82746; 82803; 82945; 82948; 83540; 83605; 83615; 83615 91; 83735; 83880; 83883 90; 83986 90; 84100; 84133; 84156; 84157; 84165; 84300; 84443; 84466; 84484; 84550; 85025; 85025 91; 85027; 85045; 85610; 85651; 85730; 86021 90; 86038; 86140; 86160; 86162 90; 86334; 86703; 86704; 86706; 86803; 86850; 86900; 86901; 86920; 87040; 87070; 87075; 87077; 87086; 87186; 87205; 87340; 87449; 87493; 87502; 87641; 88108; 88305; 89051; 89190; 92526 GN; 92610 GN; 93005; 93306; 93971; 94002; 94003; 94010; 94640; 94640 76; 94660; 94667; 94668; 94760; 94799; 97530 GO; 97530 GP; 99202; 99281; 99285; A9539; A9540; C1788; J0330; J0360; J0692; J0881; J1160; J1644; J1815; J1940; J2020; J2060; J2185; J2270; J2405; J2543; J2704; J2920; J2930; J3010; J3370; J3430; J3475; J3480; J7030; J7040; J7050; J7070; J7512; J7517; P9016